=== PATIENT | female | born 1945 | race Caucasian/White ===

== ENCOUNTER → 2018-03-01 | Outpatient (CLI) | payer MEDICARE, OTHER ==
--- NOTE | 2018-03-01 15:55 | CT ---
EXAMINATION TYPE: CT abdomen pelvis wo con DATE OF EXAM: 03/01/2018 HISTORY: Pelvic pain. Personal history of stones CT DLP: 767.5 mGycm. Automated Exposure Control for Dose Reduction was Utilized. TECHNIQUE: CT scan of the abdomen and pelvis is performed without oral or IV contrast. COMPARISON: NONE FINDINGS: Within the limitations of a non-contrast study, the following observations are made. LUNG BASES: Calcification level of the mitral valve is redemonstrated. There is prominent but subcent imeter right pericardial lymph node axial image 6. LIVER/GB: No significant abnormality is appreciated. PANCREAS: Some mild fat replaced atrophy at pancreatic head level is seen. SPLEEN: There is subcentimeter splenule anteriorly axial image 19 is slightly larger 1.0 cm splenule inferior to this axial image 23. ADRENALS: No significant abnormality is seen. KIDNEYS: There is double-J left ureter stent. At lower pole pelvis there are 3 larger renal calculi m easuring up to 11 mm on long axis. There is no right-sided renal calculi or hydronephrosis. There is nonspecific irregular soft tissue n odularity posterior and lateral to the right kidney. Cannot exclude some central fluid. No intraluminal calculi poorly distended bladder. There is mild concentric wall thickening with mild to moderate surrounding fat stranding. Cannot exclude cystitis. Correlate clinically. BOWEL: Normal-appearing appendix is seen from cecum. There is no suspicious small or large bowel dila tation. GENITAL ORGANS: Anteverted uterus is present. There are adjacent pelvic phleboliths. LYMPH NODES: No greater than 1cm abdominal or pelvic lymph nodes are appreciated. OSSEOUS STRUCTURES: Osseous structures are demineralized. There is mild to moderate chronic compressi on with sclerosis at L1 level. There is multilevel spurring in the thoracic spine. There is facet art hropathy lower lumbar levels. OTHER: There is mild calcified plaque of the aorta extending into branch vessels. Slightly more promi nent calcified plaque is seen in origin of right renal artery coronal image 52. There is moderate sized fat-containing left sided ventral wall hernia near level of umbilicus seen be st coronal image 20. There is asymmetric enlargement of right iliopsoas muscle with low dense central area axial image 68. IMPRESSION: 3 fairly large lower pole renal calculi. Successful positioning of left double-J ureter s tent. Nonspecific right retroperitoneal findings surrounding right kidney and involving right iliopso as muscle. Differential includes fluid collection such as abscesses and/or hematomas. Correlate clini crystal. Metastatic disease can have this appearance. The need to further investigate by contrast-enhan celeste imaging should be based on clinical correlation. Possible cystitis. Correlate clinically. A Hutchinson level critical message alert has been initiated for Feng Nolen MD via the [employer] Critical Results System on 03/01/2018 3:53 PM. This message alert has been sent to Catia Azar via the preferences provided by the clinician for the receipt of Radiology Critical Findings. [facility] ID [id number].
== END | disposition home or self-care (01) ==
LOC: RADCTMAIN 15:14
PROVIDERS: ATTEND Urology
DX: N20.0 Calculus of kidney (principal); Z96.0 Presence of urogenital implants; Z88.1 Allergy status to other antibiotic agents; Z87.442 Personal history of urinary calculi
CPT/HCPCS: 74176

== ENCOUNTER → 2018-03-15 | Outpatient (CLI) | payer MEDICARE, OTHER ==
[2018-03-15 14:38] LABS: Potassium 4.7 mmol/L (3.5-5.1)
[2018-03-15 15:04] LABS: Basophils # (A) 0.1 k/uL (0-0.2); Basophils % (A) 1 %; Eosinophils # (A) 0.2 k/uL (0-0.7); Eosinophils % (A) 2 %; HCT 35.3 % (34.0-46.0); HGB 11.4 gm/dL (11.4-16.0); Hypochromasia Slight; Lymphocytes # (A) 2.1 k/uL (1.0-4.8); Lymphocytes % (A) 23 %; MCH 28.1 pg (25.0-35.0); MCHC 32.3 g/dL (31.0-37.0); MCV 87.1 fL (80.0-100.0); Mean Platelet Volume 7.3; Monocytes # (A) 0.4 k/uL (0-1.0); Monocytes % (A) 5 %; Neutrophils # (A) 6.2 k/uL (1.3-7.7); Neutrophils % (A) 69 %; Platelet Count 280 k/uL (150-450); RBC 4.05 m/uL (3.80-5.40); RDW 14.5 % (11.5-15.5)
[2018-03-15 15:16] LABS: Appearance,Urine Turbid (Clear); Bacteria,Urine Moderate /hpf; Bilirubin,Urine Negative (Negative); Blood,Urine Moderate (Negative); Color,Urine Yellow; Glucose,Urine (UA) Negative (Negative); Ketones,Urine Negative (Negative); Leukocyte Esterase,Urine Large (Negative); Mucus,Urine Occasional /hpf; Nitrite,Urine Negative (Negative); PH, Urine 5.5 (5.0-8.0); Protein,Urine 1+ (Negative); RBC,Urine >182 /hpf (0-5); Specific Gravity,Urine 1.017 (1.001-1.035); Urobilinogen,Urine <2.0 mg/dL (<2.0); WBC,Urine >182 /hpf (0-5)
== END | disposition home or self-care (01) ==
LOC: LABWHC1 13:58
PROVIDERS: ATTEND Urology
DX: N20.0 Calculus of kidney (principal)
CPT/HCPCS: 36415; 80051; 81001; 82565; 84520; 85025; 87086; 93005

== ENCOUNTER 2018-03-22 11:17 | Day surgery (SDC) | payer MEDICARE, OTHER ==
[2018-03-19 08:31] VITALS: BMI 30.7
[~2018-03-22 11:17] MED LIST: DEXAMETHASONE SOD PHOSPHATE 10 MG/ML 1 ML VIAL IV ONE; LACTATED RINGERS 1,000 ML IV SCH; LIDOCAINE 1% 20 ML VIAL (10MG/ML) FOR IV START INTRADERMA PRN; MORPHINE SULFATE 2 MG/ML SYRINGE IV PRN; ONDANSETRON 4 MG/2 ML VIAL IVP ONE; Pre Op ABX Message 1 EACH MISC MISCELLANE ONE
[2018-03-22 12:00] VITALS: TEMP 98
[2018-03-22 12:20] LABS: Glucose,Whole Blood 73 mg/dL (75-99)
--- NOTE | 2018-03-22 12:22 | XR ---
EXAMINATION TYPE: XR KUB DATE OF EXAM: 03/22/2018 CLINICAL DATA: 72-year-old female preop for right-sided lithotripsy, [facility] COMPARISON: CT 03/01/2018 FINDINGS: Nonobstructive bowel gas pattern. A left-sided ureteral stent is present. A 5 mm calcification remains in the left renal pelvis along t he course of the stent. Vascular calcifications in the pelvis. IMPRESSION: A single 5 mm calculus remains in the left renal pelvis. The other 2 calculi seen on the patient's CT are not clearly identified. A left ureteral stent is in place.
[2018-03-22] MEDS ORDERED: LIDOCAINE 1% INJ 10MG/ML (20 ML MDV) ONE (12:32)
[2018-03-22] MEDS ORDERED: fentaNYL (PF) 50 MCG/ML 2 ML AMP ONE (12:32)
[2018-03-22] MEDS ORDERED: PROPOFOL 10 MG/ML 20 ML VIAL IV ONE (12:32)
[2018-03-22] MEDS ORDERED: MIDAZOLAM 2 MG/2 ML VIAL ONE (12:32)
[2018-03-22 13:45] LABS: Glucose,Whole Blood 76 mg/dL (75-99)
[2018-03-22] MEDS ORDERED: HYDROcodone/APAP 5-325MG 1 EACH TAB PO ONE (13:47)
--- NOTE | 2018-03-22 13:50 | P.OP ---
Date of Procedure: 03/22/18 Preoperative Diagnosis: Left renal calculus, calcified left ureteral stent Postoperative Diagnosis: Same Procedure(s) Performed: Extracorporeal shockwave lithotripsy left 2000 shocks at energy level IV, cystoscopy with removal double-J catheter left Anesthesia: MAC Surgeon: Feng Nolen Pathology: none sent Condition: stable Disposition: PACU Indications for Procedure: The patient is a 72-year-old female who recently transferred her urologic care from another urologic his office for kidney stones and kidney stone problems. She did not have a lot of information nor did she bring records with her. I ended up performing a KUB identifying a left ureteral stent which had been present for over urine a half according to the patient. There is a stone at the UPJ. She comes for shockwave lithotripsy to the stone and the stent to remove both Description of Procedure: Patient brought to the operating suite table and placed on the operating table supine position. The stone in the UPJ seen in 2 views of fluoroscopy. 15 and shocks at energy level IV administered to fracture the stone. I then due to 150 shocks to tip of the coil and the break of the coil on the ureteral catheter. It appears to move more freely. At the end of the procedure she's placed in a frog position with a sterile prep. Cystoscopy Foroblique lens and 25-Uzbek sheath identifies a very inflamed bladder with an encrusted stent. The stent is easily pull out of the ureter. Bladder is drained the patient's awake and returned recovery room good condition Impression successful shockwave lithotripsy and stent removal.
[2018-03-22] MEDS ORDERED: fentaNYL (PF) 50 MCG/ML 2 ML AMP IVP ONE (14:00)
[2018-03-22 14:10] VITALS: RESP 20
[2018-03-22] MEDS ORDERED: LABETALOL 5 MG/ML VIAL MDV IV ONE (14:50)
[2018-03-22 15:24] VITALS: PULSE 78
[2018-03-22 15:25] VITALS: BP 162/74
== END 2018-03-22 15:43 | disposition home or self-care (01) ==
LOC: ORWHC2ENDO 11:17
PROVIDERS: ATTEND Urology
DX: N20.0 Calculus of kidney (principal); I10 Essential (primary) hypertension; E11.9 Type 2 diabetes mellitus without complications; E78.00 Pure hypercholesterolemia, unspecified; E66.9 Obesity, unspecified; M19.90 Unspecified osteoarthritis, unspecified site; F32.9 Major depressive disorder, single episode, unspecified; R41.3 Other amnesia; F41.9 Anxiety disorder, unspecified; E78.5 Hyperlipidemia, unspecified; Z79.4 Long term (current) use of insulin; Z83.3 Family history of diabetes mellitus; Z79.891 Long term (current) use of opiate analgesic; Z87.442 Personal history of urinary calculi; Z88.1 Allergy status to other antibiotic agents; Z79.899 Other long term (current) drug therapy; Z68.30 Body mass index [BMI] 30.0-30.9, adult
CPT/HCPCS: 74018; 50590; 52310; J2250; J1100; J2405; J2001; J3010; J2704

== ENCOUNTER 2020-04-09 23:20 | Inpatient (IN) | payer MEDICARE, OTHER ==
[2020-04-09] MEDS ORDERED: ACETAMINOPHEN TAB 325 MG TAB PO STA (23:48)
[2020-04-09] MEDS: SODIUM CHLORIDE 0.9% 500 ML 500 ML IV SCH (23:53)
[2020-04-10 00:28] LABS: Basophils % (A) 0 %; Eosinophils # (A) 0.2 k/uL (0-0.7); Eosinophils % (A) 2 %; HCT 34.7 % (34.0-46.0); HGB 11.4 gm/dL (11.4-16.0); Lymphocytes # (A) 1.3 k/uL (1.0-4.8); Lymphocytes % (A) 12 %; MCH 31.1 pg (25.0-35.0); MCHC 32.9 g/dL (31.0-37.0); MCV 94.6 fL (80.0-100.0); Mean Platelet Volume 8.4; Monocytes # (A) 0.4 k/uL (0-1.0); Monocytes % (A) 4 %; Neutrophils # (A) 8.8 k/uL (1.3-7.7); Neutrophils % (A) 81 %; Platelet Count 263 k/uL (150-450); RBC 3.66 m/uL (3.80-5.40); RDW 13.6 % (11.5-15.5); WBC 10.8 k/uL (3.8-10.6)
[2020-04-10 00:31] LABS: Glucose,Whole Blood 502 mg/dL (75-99)
[2020-04-10] MEDS ORDERED: INSULIN REGULAR 100 UNIT/ML VIAL IV STA (00:31)
[2020-04-10 00:40] LABS: Albumin 3.6 g/dL (3.5-5.0); Calcium 8.9 mg/dL (8.4-10.2); Total Bilirubin 0.3 mg/dL (0.2-1.3); Total Protein 7.1 g/dL (6.3-8.2)
[2020-04-10 00:41] LABS: Glucose,Whole Blood 482 mg/dL (75-99)
[2020-04-10 00:47] LABS: INR 0.9 (<1.2); Prothrombin Time 9.5 sec (9.0-12.0)
[2020-04-10] MEDS: SODIUM CHLORIDE 0.9% 500 ML 500 ML IV SCH (00:47)
--- NOTE | 2020-04-10 00:52 | CT ---
EXAMINATION TYPE: CT brain wo con DATE OF EXAM: 04/10/2020 COMPARISON: None HISTORY: Headache CT DLP: mGycm Automated exposure control for dose reduction was used. There is cerebral cortical atrophy. There is no mass effect nor midline shift. There is no sign of in tracranial hemorrhage. There is hypodensity in the right occipital lobe consistent with old infarct. There is enlargement of the sylvian fissures. Calvarium is intact. 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 Cerebral atrophy. No acute intracranial abnormality.
[2020-04-10 00:57] LABS: Partial Thromboplastin Time 18.8 sec (22.0-30.0)
--- NOTE | 2020-04-10 01:15 | ED ---
Altered Mental Status HPI - General Chief Complaint: Altered Mental Status Stated Complaint: Altered mental status Time Seen by Provider: 04/09/20 23:32 Source: patient, EMS Mode of arrival: EMS - History of Present Illness Initial Comments: 74-year-old female patient is brought to the emergency department via ambulance in by her daughter for altered mental status. Upon arrival patient is unsure why she is here. She is reporting suprapubic abdominal discomfort as well as "headache" to the left eye. Patient states that the pain is sharp and intermittent. She just states "I don't know" when asked further details about the headache. Daughter reports that she did have a fall tonight around 10pm, but they are unsure if she hit her head or had any injuries. Patient is somewhat confused and is a poor historian. Daughter reports that she has been treated for a urinary tract infection for the last two weeks. According to documents sent with the patient it appears to be keflex. Patient does take plavix. She denies any chest pain, shortness of breath, or back pain. She states she is having suprapubic discomfort and dysuria. Patient denies any recent rash, fever, chills, cough, nausea, vomiting, diarrhea, constipation, back pain, numbness, tingling, dizziness, weakness, hematuria, dysuria, urinary urgency, urinary frequency, or any other complaints. - Related Data Home Medications Medication Instructions Recorded Confirmed ALPRAZolam [Xanax] 0.25 mg PO DAILY PRN 03/19/18 03/22/18 ARIPiprazole [Abilify] 2 mg PO DAILY 03/19/18 03/22/18 Atenolol 100 mg PO DAILY 03/19/18 03/22/18 Ergocalciferol (Vitamin D2) 50,000 unit PO DAILY 03/19/18 03/22/18 [Vitamin D2] Ferrous Sulfate [Feosol] 325 mg PO DAILY 03/19/18 03/22/18 Furosemide [Lasix] 20 mg PO DAILY 03/19/18 03/22/18 Insulin Aspart [NovoLOG] 0 units SQ ACHS 03/19/18 03/22/18 Insulin Detemir (Levemir) [Levemir] 15 unit SQ BID 03/19/18 03/22/18 Potassium Chloride [Klor-Con 20] 20 meq PO DAILY 03/19/18 03/22/18 Sertraline [Zoloft] 50 mg PO HS 03/19/18 03/22/18 Simvastatin [Zocor] 10 mg PO HS 03/19/18 03/22/18 Tamsulosin HCl [Flomax] 0.4 mg PO DAILY 03/19/18 03/22/18 cloNIDine HCL [Catapres] 0.1 mg PO DAILY 03/19/18 03/22/18 glipiZIDE [Glucotrol] 10 mg PO AC-BRKFST 03/19/18 03/22/18 Previous Rx's Medication Instructions Recorded HYDROcodone/APAP 5-325MG [[place] 1 tab PO Q4HR PRN #14 tab 03/22/18 5-325] Allergies Allergy/AdvReac Type Severity Reaction Status Date / Time No Known Allergies Allergy Verified 03/19/18 08:11 Review of Systems ROS Statement: Those systems with pertinent positive or pertinent negative responses have been documented in the HPI. ROS Other: All systems not noted in ROS Statement are negative. Past Medical History Past Medical History: CVA/TIA, Diabetes Mellitus, Hyperlipidemia, Hypertension, Osteoarthritis (OA) Additional Past Medical History / Comment(s): UTI, chronic kidney dx stage 3, Iron deficiency anemia,delirium due to known physiological condition History of Any Multi-Drug Resistant Organisms: None Reported Past Psychological History: Depression Smoking Status: Light tobacco smoker Past Alcohol Use History: Daily Past Drug Use History: None Reported General Exam General appearance: alert, in no apparent distress, other (Physical well- developed, well-nourished elderly female patient in no acute distress. Vital signs upon presentation are temperature 99.3F, pulse 82, respirations 15, blood pressure 134/79, pulse ox 94% on room air.) Eye exam: Present: normal appearance, PERRL, EOMI, other (Pressure to the left eye is 11-12 mmHg.). Absent: scleral icterus, conjunctival injection, bridgett orbital swelling ENT exam: Present: normal exam, normal oropharynx, mucous membranes moist Neck exam: Present: normal inspection, full ROM, other (Nontender, no step-off, no deformity to firm midline palpation of the posterior cervical spine. Full r elisa of motion without pain or limitation.). Absent: tenderness, meningismus, lymphadenopathy Respiratory exam: Present: normal lung sounds bilaterally. Absent: respiratory distress, wheezes, rales, rhonchi, stridor Cardiovascular Exam: Present: regular rate, normal rhythm, normal heart sounds. Absent: systolic murmur, diastolic murmur, rubs, gallop, clicks GI/Abdominal exam: Present: soft, tenderness (Suprapubic tenderness), normal bowel sounds. Absent: distended, guarding, rebound, rigid Neurological exam: Present: alert, CN II-XII intact. Absent: oriented X3 (Oriented 1) Psychiatric exam: Present: normal affect, normal mood Skin exam: Present: warm, dry, intact, normal color. Absent: rash Course Vital Signs 04/09/20 04/10/20 04/10/20 23:41 00:44 02:08 Temperature 99.3 F Pulse Rate 82 80 87 Respiratory 15 15 19 Rate Blood Pressure 134/79 155/90 123/68 O2 Sat by Pulse 94 L 93 L 97 Oximetry Medical Decision Making - Medical Decision Making 74-year-old female patient presented to the emergency department today for evaluation of altered mental status been going on throughout the day today. Patient has been treated for UTI with Keflex for the last 2 weeks. Patient also experienced a fall around 10 PM this evening, family is unsure if she hit her head. Patient was complaining of a headache upon arrival mostly to the area of the left eye. I did check pressures in the eye when they were 11-12. Patient did report loss of vision at one point but then a few minutes later stated that she was able to see fine. I did do funduscopic examination with the ophthalmoscope which showed no evidence for retinal detachment. Labs reviewed and did reveal elevated white blood cell count at 10.8 with a neutrophil count of 8.8. Sodium is 128. BUN 43, creatinine 1.82. Blood sugar upon arrival was 497. Urinalysis shows evidence for infection. We will start levaquin for UTI. I did add CRP and ESR to evaluate for possible temporal arteritis as patient reports the left eye pain, when asked further questions to assess for temporal arteritis she just stated, "I don't know". CT brain is negative. Chest xray is clear. Lactic acid is negative. She will be admitted to the hospital for further evaluation and monitoring. - Lab Data Result diagrams: 04/10/20 00:12 04/10/20 00:12 Lab Results 0604/10/20 04/10/20 Range/Units 00:12 00:12 00:12 WBC 10.8 H (3.8-10.6) k/uL RBC 3.66 L (3.80-5.40) m/uL Hgb 11.4 (11.4-16.0) gm/dL Hct 34.7 (34.0-46.0) % MCV 94.6 (80.0-100.0) fL MCH 31.1 (25.0-35.0) pg MCHC 32.9 (31.0-37.0) g/dL RDW 13.6 (11.5-15.5) % Plt Count 263 (150-450) k/uL Neutrophils % 81 % Lymphocytes % 12 % Monocytes % 4 % Eosinophils % 2 % Basophils % 0 % Neutrophils # 8.8 H (1.3-7.7) k/uL Lymphocytes # 1.3 (1.0-4.8) k/uL Monocytes # 0.4 (0-1.0) k/uL Eosinophils # 0.2 (0-0.7) k/uL Basophils # 0.0 (0-0.2) k/uL PT 9.5 (9.0-12.0) sec INR 0.9 (<1.2) APTT 18.8 L (22.0-30.0) sec Sodium 128 L (137-145) mmol/L Potassium 5.0 (3.5-5.1) mmol/L Chloride 99 (98-107) mmol/L Carbon Dioxide 18 L (22-30) mmol/L Anion Gap 11 mmol/L BUN 43 H (7-17) mg/dL Creatinine 1.82 H (0.52-1.04) mg/dL Est GFR (CKD-EPI)AfAm 31 (>60 ml/min/1.73 sqM) Est GFR (CKD-EPI)NonAf 27 (>60 ml/min/1.73 sqM) Glucose 497 H (74-99) mg/dL POC Glucose (mg/dL) (75-99) mg/dL POC Glu Director Women ID Plasma Lactic Acid Jonathan (0.7-2.0) mmol/L Calcium 8.9 (8.4-10.2) mg/dL Total Bilirubin 0.3 (0.2-1.3) mg/dL AST 22 (14-36) U/L ALT 14 (4-34) U/L Alkaline Phosphatase 128 H (38-126) U/L C-Reactive Protein (<10.0) mg/L Total Protein 7.1 (6.3-8.2) g/dL Albumin 3.6 (3.5-5.0) g/dL Urine Color Urine Appearance (Clear) Urine pH (5.0-8.0) Ur Specific Keaton (1.001-1.035) Urine Protein (Negative) Urine Glucose (UA) (Negative) Urine Ketones (Negative) Urine Blood (Negative) Urine Nitrite (Negative) Urine Bilirubin (Negative) Urine Urobilinogen (<2.0) mg/dL Ur Leukocyte Esterase (Negative) Urine RBC (0-5) /hpf Urine WBC (0-5) /hpf Urine WBC Clumps (None) /hpf Ur Squamous Epith Cells (0-4) /hpf Urine Bacteria (None) /hpf Urine Mucus (None) /hpf Acetone, Qual (Negative) 04/10/20 04/10/20 04/10/20 Range/Units 00:12 00:12 00:12 WBC (3.8-10.6) k/uL RBC (3.80-5.40) m/uL Hgb (11.4-16.0) gm/dL Hct (34.0-46.0) % MCV (80.0-100.0) fL MCH (25.0-35.0) pg MCHC (31.0-37.0) g/dL RDW (11.5-15.5) % Plt Count (150-450) k/uL Neutrophils % % Lymphocytes % % Monocytes % % Eosinophils % % Basophils % % Neutrophils # (1.3-7.7) k/uL Lymphocytes # (1.0-4.8) k/uL Monocytes # (0-1.0) k/uL Eosinophils # (0-0.7) k/uL Basophils # (0-0.2) k/uL PT (9.0-12.0) sec INR (<1.2) APTT (22.0-30.0) sec Sodium (137-145) mmol/L Potassium (3.5-5.1) mmol/L Chloride (98-107) mmol/L Carbon Dioxide (22-30) mmol/L Anion Gap mmol/L BUN (7-17) mg/dL Creatinine (0.52-1.04) mg/dL Est GFR (CKD-EPI)AfAm (>60 ml/min/1.73 sqM) Est GFR (CKD-EPI)NonAf (>60 ml/min/1.73 sqM) Glucose (74-99) mg/dL POC Glucose (mg/dL) (75-99) mg/dL POC Glu Director Women ID Plasma Lactic Acid Jonathan 1.2 (0.7-2.0) mmol/L Calcium (8.4-10.2) mg/dL Total Bilirubin (0.2-1.3) mg/dL AST (14-36) U/L ALT (4-34) U/L Alkaline Phosphatase (38-126) U/L C-Reactive Protein 32.2 H (<10.0) mg/L Total Protein (6.3-8.2) g/dL Albumin (3.5-5.0) g/dL Urine Color Urine Appearance (Clear) Urine pH (5.0-8.0) Ur Specific Keaton (1.001-1.035) Urine Protein (Negative) Urine Glucose (UA) (Negative) Urine Ketones (Negative) Urine Blood (Negative) Urine Nitrite (Negative) Urine Bilirubin (Negative) Urine Urobilinogen (<2.0) mg/dL Ur Leukocyte Esterase (Negative) Urine RBC (0-5) /hpf Urine WBC (0-5) /hpf Urine WBC Clumps (None) /hpf Ur Squamous Epith Cells (0-4) /hpf Urine Bacteria (None) /hpf Urine Mucus (None) /hpf Acetone, Qual Negative (Negative) 04/10/20 04/10/20 04/10/20 Range/Units 00:29 00:39 01:15 WBC (3.8-10.6) k/uL RBC (3.80-5.40) m/uL Hgb (11.4-16.0) gm/dL Hct (34.0-46.0) % MCV (80.0-100.0) fL MCH (25.0-35.0) pg MCHC (31.0-37.0) g/dL RDW (11.5-15.5) % Plt Count (150-450) k/uL Neutrophils % % Lymphocytes % % Monocytes % % Eosinophils % % Basophils % % Neutrophils # (1.3-7.7) k/uL Lymphocytes # (1.0-4.8) k/uL Monocytes # (0-1.0) k/uL Eosinophils # (0-0.7) k/uL Basophils # (0-0.2) k/uL PT (9.0-12.0) sec INR (<1.2) APTT (22.0-30.0) sec Sodium (137-145) mmol/L Potassium (3.5-5.1) mmol/L Chloride (98-107) mmol/L Carbon Dioxide (22-30) mmol/L Anion Gap mmol/L BUN (7-17) mg/dL Creatinine (0.52-1.04) mg/dL Est GFR (CKD-EPI)AfAm (>60 ml/min/1.73 sqM) Est GFR (CKD-EPI)NonAf (>60 ml/min/1.73 sqM) Glucose (74-99) mg/dL POC Glucose (mg/dL) 502 H 482 H (75-99) mg/dL POC Glu Director Women ID Sybil Herrera JeanieYadira Plasma Lactic Acid Jonathan (0.7-2.0) mmol/L Calcium (8.4-10.2) mg/dL Total Bilirubin (0.2-1.3) mg/dL AST (14-36) U/L ALT (4-34) U/L Alkaline Phosphatase (38-126) U/L C-Reactive Protein (<10.0) mg/L Total Protein (6.3-8.2) g/dL Albumin (3.5-5.0) g/dL Urine Color Light Yellow Urine Appearance Turbid H (Clear) Urine pH 5.5 (5.0-8.0) Ur Specific Keaton 1.013 (1.001-1.035) Urine Protein 1+ H (Negative) Urine Glucose (UA) 4+ H (Negative) Urine Ketones Negative (Negative) Urine Blood Moderate H (Negative) Urine Nitrite Negative (Negative) Urine Bilirubin Negative (Negative) Urine Urobilinogen <2.0 (<2.0) mg/dL Ur Leukocyte Esterase Large H (Negative) Urine RBC 31 H (0-5) /hpf Urine WBC >182 H (0-5) /hpf Urine WBC Clumps Many H (None) /hpf Ur Squamous Epith Cells 5 H (0-4) /hpf Urine Bacteria Occasional H (None) /hpf Urine Mucus Rare H (None) /hpf Acetone, Qual (Negative) - EKG Data -: EKG Interpreted by Me EKG Comments: EKG obtained at 00 57 shows normal sinus rhythm with a ventricular rate of 81, IA interval 160, QRS duration 88, QT 434, QTC 504. No evidence of ST elevation or depression. - Radiology Data Radiology results: report reviewed, image reviewed Two-view x-ray of the chest is obtained. Report was reviewed in its entirety. Impression by Dr. Moffett shows no active pulmonary disease. CT brain without contrast was obtained. Report was reviewed in its entirety. Impression by Dr. Moffett shows an old right occipital lobe cortical infarct. Cerebral atrophy. No acute intracranial abnormality. Disposition Clinical Impression: UTI (urinary tract infection), Altered mental status, Hyperglycemia Disposition: [facility] Condition: Serious Referrals: None,Stated [Primary Care Provider] - 1-2 days Decision to Admit Reason: Admit from EC Decision Date: 04/10/20 Decision Time: 02:42
[2020-04-10] MEDS ORDERED: SODIUM CHLORIDE 0.9% 1,000 ML IV ONE (01:18)
[2020-04-10 01:42] LABS: Appearance,Urine Turbid (Clear); Bacteria,Urine Occasional /hpf; Bilirubin,Urine Negative (Negative); Blood,Urine Moderate (Negative); Color,Urine Light Yellow; Glucose,Urine (UA) 4+ (Negative); Ketones,Urine Negative (Negative); Leukocyte Esterase,Urine Large (Negative); Mucus,Urine Rare /hpf; Nitrite,Urine Negative (Negative); PH, Urine 5.5 (5.0-8.0); Protein,Urine 1+ (Negative); RBC,Urine 31 /hpf (0-5); Specific Gravity,Urine 1.013 (1.001-1.035); Squamous Epithelial Cell,Urine 5 /hpf (0-4); Urobilinogen,Urine <2.0 mg/dL (<2.0); WBC,Urine >182 /hpf (0-5)
--- NOTE | 2020-04-10 02:00 | XR ---
EXAMINATION TYPE: XR chest 2V DATE OF EXAM: 04/10/2020 COMPARISON: NONE HISTORY: Hypoxemia TECHNIQUE: 2 views FINDINGS: There is no heart failure nor confluent pneumonic infiltrate. Thoracic aorta is atheromatou s. There are chest leads. Costophrenic angles are clear. IMPRESSION: No active pulmonary disease.
[2020-04-10] MEDS ORDERED: LEVOFLOXACIN 750MG-D5W PMX 750 MG in DEXTROSE/WATER 1 150ML.BAG IVPB STA (02:29)
[2020-04-10 02:42] LABS: Glucose,Whole Blood 397 mg/dL (75-99)
[2020-04-10] MEDS ORDERED: NALOXONE 0.4 MG/ML 1 ML VIAL IV PRN (02:44)
[2020-04-10] MEDS ORDERED: INSULIN ASPART (NovoLOG) 100 UNIT/ML VIAL SQ STA (02:48)
[2020-04-10] MEDS: SODIUM CHLORIDE 0.9% 1,000 ML IV SCH ×2 (03:33→16:34)
--- NOTE | 2020-04-10 05:26 | P.HPIM ---
History of Present Illness H&P Date: 04/10/20 The patient is a 74-year-old female with a PMH of CVA, type II DM, hyperlipidemia, hypertension, and OA who was brought into the ED by family due to altered mentation. The patient is a very poor historian and thereby history obtained from ED provider and documentation. The patient notes that she is having diffuse abdominal pain though is denying any additional complaints. As per the ED documentation, the daughter had reported that the patient had a fall earlier on the day of presentation and were unsure if she had suffered head trauma. The daughter also reported that the patient was recently treated for UTI with the documentation showing that she was receiving Keflex. As per the ED documentation, the patient also reported a diffuse headache along with some left eye complaints. During the interview however, the patient denied any visual complaints though was unable to see on examination. The patient further denied dysuria, fever, chills, chest pain, shortness of nausea, vomiting, or diarrhea. Attempted to contact daughter (Madeline Pike [phone]) with no answer received. The patient underwent an extensive outpatient emergency room with a CT head that revealed old right upper lobe cortical infarct with no other acute abnormalities. Chest x-ray revealed no abnormalities with EKG showing sinus rhythm at 81 bpm with LVH. Laboratory evaluation revealed a UA consistent with UTI, WBC count of 10.8, hemoglobin 11.4, platelet is 263, sodium 128, potassium 5.0, BUN 43, creatinine 1.82, and glucose 497 with acetone negative. Review of Systems Pertinent positives and negatives as discussed in HPI, a complete review of systems was performed and all other systems are negative. Past Medical History Past Medical History: CVA/TIA, Diabetes Mellitus, Hyperlipidemia, Hypertension, Osteoarthritis (OA) Additional Past Medical History / Comment(s): UTI, chronic kidney dx stage 3, Iron deficiency anemia,delirium due to known physiological condition History of Any Multi-Drug Resistant Organisms: None Reported Past Psychological History: Depression Smoking Status: Light tobacco smoker Past Alcohol Use History: Daily Past Drug Use History: None Reported Medications and Allergies Home Medications Medication Instructions Recorded Confirmed Type ALPRAZolam [Xanax] 0.25 mg PO DAILY PRN 03/19/18 03/22/18 History ARIPiprazole [Abilify] 2 mg PO DAILY 03/19/18 03/22/18 History Atenolol 100 mg PO DAILY 03/19/18 03/22/18 History Ergocalciferol (Vitamin D2) 50,000 unit PO DAILY 03/19/18 03/22/18 History [Vitamin D2] Ferrous Sulfate [Feosol] 325 mg PO DAILY 03/19/18 03/22/18 History Furosemide [Lasix] 20 mg PO DAILY 03/19/18 03/22/18 History Insulin Aspart [NovoLOG] 0 units SQ ACHS 03/19/18 03/22/18 History Insulin Detemir (Levemir) [Levemir] 15 unit SQ BID 03/19/18 03/22/18 History Potassium Chloride [Klor-Con 20] 20 meq PO DAILY 03/19/18 03/22/18 History Sertraline [Zoloft] 50 mg PO HS 03/19/18 03/22/18 History Simvastatin [Zocor] 10 mg PO HS 03/19/18 03/22/18 History Tamsulosin HCl [Flomax] 0.4 mg PO DAILY 03/19/18 03/22/18 History cloNIDine HCL [Catapres] 0.1 mg PO DAILY 03/19/18 03/22/18 History glipiZIDE [Glucotrol] 10 mg PO AC-BRKFST 03/19/18 03/22/18 History HYDROcodone/APAP 5-325MG [[place] 1 tab PO Q4HR PRN #14 tab 03/22/18 Rx 5-325] Allergies Allergy/AdvReac Type Severity Reaction Status Date / Time No Known Allergies Allergy Verified 03/19/18 08:11 Physical Exam Vitals: Vital Signs Temp Pulse Resp BP Pulse Ox 04/10/20 02:08 87 19 123/68 97 04/10/20 00:44 80 15 155/90 93 L 04/09/20 23:41 99.3 F 82 15 134/79 94 L Intake and Output 04/09/20 04/09/20 04/10/20 14:59 22:59 06:59 Other: Weight 85.956 kg General: non toxic, no distress, appears at stated age, obese Derm: no unusual rashes/lesions no unusual ecchymoses, warm, dry Head: atraumatic, normocephalic, symmetric Eyes: EOMI, no lid lag, anicteric sclera, pupils equal round reactive to light ENT: Nose and ears atraumatic, no thrush, no pharyngeal erythema Neck: No thyromegaly, no cervical lymphadenopathy, trachea midline, supple Mouth: no lip lesion, mucus membranes moist Cardiovascular: S1S2 reg, no murmur, positive posterior tibial pulse bilateral, no edema, capillary refill less than 2 seconds Lungs: CTA bilateral, no rhonchi, no rales , no accessory muscle use Abdominal: soft, mild to moderate diffuse abdominal tenderness, no guarding, no appreciable organomegaly, normal bowel sounds Ext: no gross muscle atrophy, muscle strength 5 out of 5 in all 4 extremities grossly, no contractures, Neuro: Patient appears to not be able to track visual objects or respond to visual cues appearing functionally blind, light touch intact all 4 extremities Psych: Awake, alert, oriented only to self and partially to place though unable to give meaningful history Results CBC & Chem 7: 04/10/20 00:12 04/10/20 00:12 Labs: Abnormal Lab Results - Last 24 Hours (Table) 04/10/20 04/10/20 04/10/20 Range/Units 00:12 00:12 00:12 WBC 10.8 H (3.8-10.6) k/uL RBC 3.66 L (3.80-5.40) m/uL Neutrophils # 8.8 H (1.3-7.7) k/uL ESR (0-20) mm/hr APTT 18.8 L (22.0-30.0) sec Sodium 128 L (137-145) mmol/L Carbon Dioxide 18 L (22-30) mmol/L BUN 43 H (7-17) mg/dL Creatinine 1.82 H (0.52-1.04) mg/dL Glucose 497 H (74-99) mg/dL POC Glucose (mg/dL) (75-99) mg/dL Alkaline Phosphatase 128 H (38-126) U/L C-Reactive Protein (<10.0) mg/L Urine Appearance (Clear) Urine Protein (Negative) Urine Glucose (UA) (Negative) Urine Blood (Negative) Ur Leukocyte Esterase (Negative) Urine RBC (0-5) /hpf Urine WBC (0-5) /hpf Urine WBC Clumps (None) /hpf Ur Squamous Epith Cells (0-4) /hpf Urine Bacteria (None) /hpf Urine Mucus (None) /hpf 04/10/20 04/10/20 04/10/20 Range/Units 00:12 00:12 00:29 WBC (3.8-10.6) k/uL RBC (3.80-5.40) m/uL Neutrophils # (1.3-7.7) k/uL ESR 106 H (0-20) mm/hr APTT (22.0-30.0) sec Sodium (137-145) mmol/L Carbon Dioxide (22-30) mmol/L BUN (7-17) mg/dL Creatinine (0.52-1.04) mg/dL Glucose (74-99) mg/dL POC Glucose (mg/dL) 502 H (75-99) mg/dL Alkaline Phosphatase (38-126) U/L C-Reactive Protein 32.2 H (<10.0) mg/L Urine Appearance (Clear) Urine Protein (Negative) Urine Glucose (UA) (Negative) Urine Blood (Negative) Ur Leukocyte Esterase (Negative) Urine RBC (0-5) /hpf Urine WBC (0-5) /hpf Urine WBC Clumps (None) /hpf Ur Squamous Epith Cells (0-4) /hpf Urine Bacteria (None) /hpf Urine Mucus (None) /hpf 04/10/20 04/10/20 04/10/20 Range/Units 00:39 01:15 02:40 WBC (3.8-10.6) k/uL RBC (3.80-5.40) m/uL Neutrophils # (1.3-7.7) k/uL ESR (0-20) mm/hr APTT (22.0-30.0) sec Sodium (137-145) mmol/L Carbon Dioxide (22-30) mmol/L BUN (7-17) mg/dL Creatinine (0.52-1.04) mg/dL Glucose (74-99) mg/dL POC Glucose (mg/dL) 482 H 397 H (75-99) mg/dL Alkaline Phosphatase (38-126) U/L C-Reactive Protein (<10.0) mg/L Urine Appearance Turbid H (Clear) Urine Protein 1+ H (Negative) Urine Glucose (UA) 4+ H (Negative) Urine Blood Moderate H (Negative) Ur Leukocyte Esterase Large H (Negative) Urine RBC 31 H (0-5) /hpf Urine WBC >182 H (0-5) /hpf Urine WBC Clumps Many H (None) /hpf Ur Squamous Epith Cells 5 H (0-4) /hpf Urine Bacteria Occasional H (None) /hpf Urine Mucus Rare H (None) /hpf Assessment and Plan Plan: Toxic metabolic encephalopathy in setting of UTI -Continue with levofloxacin since patient recently received a course of Keflex -Continue with IV fluids 80 mL an hour -Follow up urine and blood cultures Impaired vision -Neurochecks -Neurology consult ALEJANDRINA on chronic kidney disease, likely secondary to dehydration -Continue with IV fluids and monitor BMP Hyponatremia -C/w IVFs and monitor BMP Type 2 diabetes mellitus with hyperglycemia -Continue with insulin sliding scale with Levemir qhs -Blood glucose monitoring DVT prophylaxis -IPCDs The patient is admitted with an anticipated more than 2 midnight stay for evaluation of AMS CODE STATUS: Full Code Discussed with: Patient Anticipated discharge date: 2-[address]: Home A total of 40 minutes was spent on the care of this complex patient more than 50% of the time was spent in counseling and care coordination.
[2020-04-10 07:12] LABS: Glucose,Whole Blood 425 mg/dL (75-99)
[2020-04-10] MEDS: INSULIN ASPART (NovoLOG) 100 UNIT/ML VIAL SQ SCH ×4 (08:29→22:19)
[2020-04-10 11:58] LABS: Glucose,Whole Blood 355 mg/dL (75-99)
[2020-04-10 16:50] LABS: Glucose,Whole Blood 187 mg/dL (75-99)
--- NOTE | 2020-04-10 19:32 | CONS ---
CONSULTATION DATE OF DICTATION: 04/10/2020 REASON FOR CONSULTATION: Coffee-ground emesis. HISTORY OF PRESENT ILLNESS: The patient is a 74-year-old pleasant white female who came into the emergency room by her daughter because of altered mental status and an episode of coffee-ground emesis at home. Apparently she was complaining of some abdominal pain, mostly in the lower abdominal area, and had an episode of coffee-ground emesis. She came into the emergency room. She has been admitted to the hospital. Since being in the ER for the last 8 hours she did not have any episodes of nausea, vomiting or coffee-ground emesis. Apparently she was diagnosed with a urinary tract infection about 2 weeks ago and has been on Keflex since then. She reports no fever, chills, night sweats. PAST MEDICAL HISTORY: Her past medical history is significant for recurrent UTI, history of hypertension, diabetes mellitus, hyperlipidemia, degenerative joint disease, history of CVA in the past. MEDICATIONS: Xanax, Abilify, atenolol, vitamin D2, Feosol, Lasix, NovoLog, Levemir, Zocor, Zoloft, potassium chloride, Flomax, Catapres, Glucotrol and [place]. ALLERGIES: NONE. SOCIAL HISTORY: No smoking. No alcohol use. FAMILY HISTORY: Family history could not be obtained. REVIEW OF SYSTEMS: Patient is a somewhat poor historian and most of the review of systems could not be obtained; however: CARDIOPULMONARY: She denies any chest pain or shortness of breath. GI: As mentioned above. CONSTITUTIONAL: She does not remember if she lost any weight. PAST SURGICAL HISTORY: Not reported. PHYSICAL EXAMINATION: She appears comfortable. No apparent distress. Vital signs are stable. Blood pressure is 130/76, pulse rate 94, temperature 98.4. HEENT examination unremarkable. Conjunctivae pink. Sclerae anicteric. Oral cavity no lesions. NECK: No JVD or lymph node enlargement. CHEST: Clear to auscultation. HEART: Regular rate and rhythm. ABDOMEN: Soft. There was mild tenderness in the suprapubic area. Rest of the abdomen was benign. Bowel sounds are positive. EXTREMITIES: No pedal edema. SKIN: No rashes. NEUROLOGIC: Alert and oriented x3. No focal deficits. LABS: Labs from today show WBC 10.8, hemoglobin 11.4, platelets normal. Basic metabolic panel is within normal limits. PT 9.5, INR 0.9. BUN and creatinine are 43 and 1.82, respectively. AST and ALT normal. Alkaline phosphatase is 128. occult blood was positive. IMPRESSION: 1. This is a lady who presented to the hospital with altered mental status and had an episode of nausea and vomiting with coffee-ground emesis at home. No further episodes of bleeding since being in the ER. Initial hemoglobin was 11.4 g/dL. 2. Recurrent urinary tract infection, presently on antibiotics. 3. Altered mental status, probably related to urosepsis, which has improved. 4. History of hypertension, diabetes mellitus and hyperlipidemia. RECOMMENDATIONS: 1. Start on Protonix 40 mg daily. 2. Monitor CBC on a daily basis. 3. If she has further episodes of coffee-ground emesis, will consider endoscopic evaluation, but for now we will continue to monitor her closely with symptomatic and supportive care. Thank you for this consultation. BRANDEN / ROSIE: [phone] /
[2020-04-10 21:38] LABS: Glucose,Whole Blood 271 mg/dL (75-99)
[2020-04-10] MEDS: METOPROLOL TARTRATE 50 MG TAB PO SCH (22:19)
[2020-04-10] MEDS: ACETAMINOPHEN TAB 325 MG TAB PO PRN (22:19)
[2020-04-10] MEDS: ATORVASTATIN 10 MG TAB PO SCH (22:19)
[2020-04-10] MEDS: PANTOPRAZOLE 40 MG/10 ML VIAL IVP SCH (22:20)
[2020-04-10] MEDS: INSULIN DETEMIR (LEVEMIR) 100 UNIT/ML SYR SQ SCH (22:20)
[2020-04-11] MEDS ORDERED: GABAPENTIN 100 MG CAP PO STA (00:23)
[2020-04-11] MEDS: SODIUM CHLORIDE 0.9% 1,000 ML IV SCH ×2 (04:40→17:46)
[2020-04-11 07:05] LABS: Glucose,Whole Blood 220 mg/dL (75-99)
[2020-04-11] MEDS: PANTOPRAZOLE 40 MG/10 ML VIAL IVP SCH ×2 (07:27→21:14)
[2020-04-11] MEDS: ACETAMINOPHEN TAB 325 MG TAB PO PRN (07:28)
[2020-04-11] MEDS: METOPROLOL TARTRATE 50 MG TAB PO SCH ×2 (07:28→21:13)
[2020-04-11] MEDS: FERROUS SULFATE 325 MG TAB PO SCH (07:29)
[2020-04-11] MEDS: TAMSULOSIN 0.4 MG CAP.ER.24H PO SCH (07:29)
[2020-04-11] MEDS: amLODIPine 5 MG TAB PO SCH (07:30)
[2020-04-11] MEDS: SERTRALINE 50 MG TAB PO SCH (07:30)
[2020-04-11] MEDS: INSULIN ASPART (NovoLOG) 100 UNIT/ML VIAL SQ SCH ×4 (07:31→21:25)
[2020-04-11] MEDS ORDERED: LEVOFLOXACIN 750MG-D5W PMX 750 MG in DEXTROSE/WATER 1 150ML.BAG IVPB SCH (09:00)
[2020-04-11] MEDS ORDERED: FUROSEMIDE 20 MG TAB PO SCH (09:00)
[2020-04-11 09:10] LABS: Albumin 3.1 g/dL (3.5-5.0); Calcium 8.5 mg/dL (8.4-10.2); Total Bilirubin 0.4 mg/dL (0.2-1.3); Total Protein 6.3 g/dL (6.3-8.2)
[2020-04-11 09:22] LABS: Basophils # (A) 0.1 k/uL (0-0.2); Basophils % (A) 1 %; Eosinophils # (A) 0.1 k/uL (0-0.7); Eosinophils % (A) 1 %; HGB 10.5 gm/dL (11.4-16.0); Hypochromasia Slight; Lymphocytes # (A) 1.9 k/uL (1.0-4.8); Lymphocytes % (A) 20 %; MCH 31.8 pg (25.0-35.0); MCHC 32.9 g/dL (31.0-37.0); MCV 96.8 fL (80.0-100.0); Monocytes # (A) 0.7 k/uL (0-1.0); Monocytes % (A) 8 %; Neutrophils # (A) 6.8 k/uL (1.3-7.7); Neutrophils % (A) 69 %; Platelet Count 235 k/uL (150-450); RBC 3.31 m/uL (3.80-5.40); RDW 13.5 % (11.5-15.5); WBC 9.8 k/uL (3.8-10.6)
[2020-04-11] MEDS: CLOPIDOGREL 75 MG TAB PO SCH (10:08)
--- NOTE | 2020-04-11 10:45 | US ---
EXAMINATION TYPE: US carotid duplex BILAT DATE OF EXAM: 04/11/2020 COMPARISON: NONE CLINICAL HISTORY: stroke. Stroke exam limited due to patient moving. EXAM MEASUREMENTS: RIGHT: Peak Systolic Velocity (PSV) cm/sec ----- Right CCA: 69.5 ----- Right ICA: 83.4 ----- Right ECA: 97.3 ICA/CCA ratio: 1.2 RIGHT: End Diastole cm/sec ----- Right CCA: 18.4 ----- Right ICA: 23.0 ----- Right ECA: 18.4 LEFT: Peak Systolic Velocity (PSV) cm/sec ----- Left CCA: 95.0 ----- Left ICA: 78.8 ----- Left ECA: 120.6 ICA/CCA ratio: 0.8 LEFT: End Diastole cm/sec ----- Left CCA: 23.0 ----- Left ICA: 16.0 ----- Left ECA: 0 VERTEBRALS (direction of flow): Right Vertebral: Antegrade Left Vertebral: Antegrade Rhythm: Normal There are some areas of mild intimal thickening No significant stenosis seen IMPRESSION: No significant flow-limiting stenosis. Criteria for Assigning % of Stenosis / Diameter reduction (Estimation based on the indirect measurements of the internal carotid artery velocities (ICA PSV). 1. Normal (no stenosis)=ICA PSV < 125 cm/s: ratio < 2.0: ICA EDV<40 cm/s. 2. Less than 50% stenosis=ICA PSV < 125 cm/s: ratio < 2.0: ICA EDV<40 cm/s. 3. 50 to 69% stenosis=ICA PSV of 125 to 230 cm/s: ration 2.0 ? 4.0: ICA EDV 40-100 cm/s. 4. Greater than 70% stenosis to near occlusion= ICA PSV > 230 cm/s: ratio > 4.0: ICA EDV > 100 cm/s. 5. Near occlusion= ICA PSV velocities may be low or undetectable: variable ratio and ICA EDV. 6. Total occlusion=unable to detect flow.
[2020-04-11] MEDS ORDERED: LORazepam 2 MG/ML INJ IV STA (11:00)
--- NOTE | 2020-04-11 11:13 | P.PN ---
Subjective Progress Note Date: 04/11/20 Principal diagnosis: Change in mental status RN noted today that patient was looking on the right side and was unable to look to the left, she was barely able to lift both forearms above the bed level. She is still significantly confused and disoriented. Objective - Vital Signs Vital signs: Vital Signs Temp 97.5 F L 04/11/20 10:00 Pulse 98 04/11/20 07:00 Resp 17 04/11/20 07:00 BP 160/82 04/11/20 07:00 Pulse Ox 97 04/11/20 07:00 Intake & Output 04/10/20 04/11/20 04/11/20 18:59 06:59 18:59 Intake Total 640 400 Balance 640 400 Weight 85.956 kg Intake: Intake, IV Titration 640 Amount Sodium Chloride 0.9% 1, 640 000 ml @ 80 mls/hr IV . [id number] [facility] Rx#:[id number] Oral 400 Other: Voiding Method Bedside Commode Bedside Commode Diaper Diaper Incontinent Incontinent # Voids 4 1 - Labs CBC & Chem 7: 04/11/20 07:11 04/11/20 07:11 Labs: Abnormal Lab Results - Last 24 Hours (Table) 04/10/20 04/10/20 04/10/20 Range/Units 11:54 16:49 21:34 RBC (3.80-5.40) m/uL Hgb (11.4-16.0) gm/dL Hct (34.0-46.0) % Sodium (137-145) mmol/L BUN (7-17) mg/dL Creatinine (0.52-1.04) mg/dL Glucose (74-99) mg/dL POC Glucose (mg/dL) 355 H 187 H 271 H (75-99) mg/dL Albumin (3.5-5.0) g/dL 04/11/20 04/11/20 04/11/20 Range/Units 07:01 07:11 07:11 RBC 3.31 L (3.80-5.40) m/uL Hgb 10.5 L (11.4-16.0) gm/dL Hct 32.0 L (34.0-46.0) % Sodium 135 L (137-145) mmol/L BUN 28 H (7-17) mg/dL Creatinine 1.63 H (0.52-1.04) mg/dL Glucose 194 H (74-99) mg/dL POC Glucose (mg/dL) 220 H (75-99) mg/dL Albumin 3.1 L (3.5-5.0) g/dL Microbiology - Last 24 Hours (Table) 04/10/20 00:12 Blood Culture - Preliminary Blood No Growth after 24 hours 04/10/20 01:15 Urine Culture - Preliminary Urine,Voided Assessment and Plan Plan: Toxic metabolic encephalopathy in setting of ALEJANDRINA & UTI -Continue with levofloxacin since patient recently received a course of Keflex -Continue with IV fluids 80 mL an hour -Urine and blood cultures negative Impaired vision -R/O CVA -Plavix started by neuro -Continue neurochecks -Neurology recommending MRI brain to r/o stroke, planned at around 1PM -Tele -PT and OT ALEJANDRINA on chronic kidney disease, likely secondary to dehydration -Continue with IV fluids and monitor BMP Hyponatremia -C/w IVFs and monitor BMP Type 2 diabetes mellitus with hyperglycemia -Continue with insulin sliding scale with Levemir qhs -Blood glucose monitoring DVT prophylaxis -IPCDs CODE STATUS: Full Code Discussed with: Patient Anticipated discharge date: 2-[address]: Home vs. rehab
--- NOTE | 2020-04-11 11:35 | CONS ---
CONSULTATION DATE OF THIS DICTATION: 04/11/2020. HISTORY OF PRESENT ILLNESS: Thank you for allowing me to evaluate Nicol Caceres who is a 74-year-old right-handed white female who presented to [facility] on 04/09/2020 for evaluation of confusion which had been present for several days prior to presentation as well as a recent fall. The patient is a poor historian and stated "I don't know," when I asked her why she was in the hospital. The majority of the patient's history was obtained from nursing staff and the medical record. According to the EMS run sheet, the patient had altered level of consciousness for several days according to her family, had been eating high sugar foods despite her history of diabetes mellitus and was recently diagnosed with urinary tract infection and placed on antibiotics. She apparently had a fall on the evening of presentation at home from standing, family was not sure whether she struck her head. The EMS report indicates they noted a left gaze preference on their arrival. The emergency room note indicates the patient complained of suprapubic discomfort, dysuria, and a left periorbital headache. The ER note also mentions the fall and states the patient was maintained on Plavix at home, although this is not listed in the computer as one of her home medications. The patient apparently had an episode of coffee-grounds emesis at home and as a result, blood thinning medications are currently on hold and Gastroenterology is following the patient's case. The patient currently denies headache, vertigo, diplopia, dysarthria, difficulty chewing/swallowing or focal venous systems in the extremities. She denies knowledge of previous stroke or seizure. When I asked her how she was doing, she stated "good." ALLERGIES: No known drug allergies. HOME MEDICATIONS: Norvasc, Zoloft, Lasix, Feosol, Lopressor, vitamin D, Glucotrol, Zocor, Klor- Con, Flomax, Levemir, and reportedly Plavix according to the emergency room note. PAST MEDICAL HISTORY: Hypertension, diabetes mellitus, renal calculi, recurrent UTIs, hyperlipidemia, osteoarthritis, chronic kidney disease, and obesity. PAST SURGICAL HISTORY: Left knee surgery and lithotripsy. SOCIAL HISTORY: Patient denies tobacco or alcohol use. She states she has 4 children. FAMILY HISTORY: Cannot reliably be obtained from the patient. REVIEW OF SYSTEMS: Fourteen systems are reviewed and no additional complaints are identified compared to the review of systems documented in the history and physical. PHYSICAL EXAM: Upon arrival to the patient's room, she was lying in bed and kept her eyes closed through the majority of the evaluation. When asked the patient to open her eyes and make eye contact with me, she demonstrated clear left gaze deviation and would not make direct eye contact with me. When I was standing on her right, although she claims to be able to see me, could not answer if I was wearing a mask or the color of my shirt. Even when I was standing on her left, she would not make direct eye contact with me. She is obese, deconditioned, uncooperative with the examination and frequently told the examiner "that's enough" and wanted me to leave. VITAL SIGNS: Blood pressure is 160/82 with a pulse of 98, respiratory rate 17, temperature is 99.3, weight is 85.9 kg on a 5-foot, 5-inch frame. SKIN AND EXTREMITIES: Arthritic changes are noted in the hands, postsurgical changes are noted at the left knee. HEAD AND NECK: No signs of trauma. Neck is supple. No meningeal signs. Arteries nontender without bruits. HEART: Regular rhythm, higher cortical function. MENTAL STATUS: Patient was alert and would communicate with the examiner, but would not provide her name or answer any other orientation questions. She seemed to perseverate at times answering nearly every question "no" even when this was not an appropriate response such as if I asked her what month or day it was. The only time the patient answered "yes" was 1 after she had children. She would not name or read for the examiner which appeared in part related to poor vision. According to nursing staff, spoke to the patient's daughter, the patient's apparent visual issue is new. She would not repeat. She would not cooperate with right to left orientation or extinction testing. Cranial Nerve 2-12: The right pupil is 4 mm, left is 5 mm each are reactive to light, no afferent pupillary defect. The patient does not consistently blink to threat from either side. III, IV, XI, the patient has clear left gaze deviation. She would not cross the midline to the right. She would perform slight up and down gaze. No ptosis or nystagmus was noted. V: Unreliable but reportedly intact to pinprick and light touch in all 3 divisions. Motor 5 intact. VII: There is flattening of the right nasolabial fold. VIII: Acuity reportedly intact to finger rub, IX,X Palate marilu in the midline. XI: Patient would not shrug her shoulders. XII: Patient protruded her tongue in the midline without fasciculation or atrophy. Motor examination there is a right upper extremity pronator drift. There is reduced bulk in hand intrinsic muscles with normal tone, the patient was spontaneously reaching for her face, appeared to be somewhat ataxic with her right upper extremity movements. She had very little patience for formal muscle strength testing and did not want to do it. Within the constraints of her effort, there appeared to be subtle right upper extremity weakness as compared to the left, the patient did lift each leg off the bed and wiggle the toes in a fairly symmetric fashion. SENSORY: Unreliable but reportedly intact to pinprick/light touch per patient. REFLEXES: Right side of this first biceps 2, 2. Brachioradialis 1,1; triceps 2, 2; patella 2/1 (left is postsurgical), ankle 0,0, Plantar responses extensor on the right and flexor on the left. Casanova's is absent. COORDINATION: With the brief effort, the patient provided on qrfslt-[id number] movements. There appeared to be ataxia on the right. The patient would not perform [id number]-[id number] for the examiner. Rapid alternating movements are mildly slowed on the right. 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 Chest x-ray demonstrated no acute pathology. LAB WORK: Demonstrates a white blood count of 10.8 with hemoglobin 11.4, platelet count 263. Sodium 128, potassium 5.0, BUN 43 with creatinine 1.8, INR 0.9, presenting glucose 497, calcium 8.9, ALT 14, AST 22, sedimentation rate 106. Urinalysis revealed large leukocyte esterase, greater than 182 WBCs, 31 RBCs, many WBC clumps, becerril virus negative. Blood cultures have demonstrated no growth at 24 hours. IMPRESSION: 1. Left gaze preference, right nasal labial fold flattening, right upper extremity drift, and right extensor plantar response, rule out left hemispheric infarct. Risk factors for stroke include hypertension, diabetes mellitus, hyperlipidemia, obesity, previous stroke (by imaging) and age. The patient was reportedly on Plavix at the time of this event. 2. 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 3. Encephalopathy, likely secondary to urinary tract infection, prerenal azotemia, hyponatremia, and uncontrolled diabetes mellitus. 4. Reported coffee-ground emesis at home, Gastroenterology is following the patient's case and blood thinning medication is on hold. 5. Elevated sedimentation rate, likely secondary to urinary tract infection. The patient denies headache at this time. 6. Medical problems including renal calculi, status post lithotripsy, recurrent UTIs, osteoarthritis, and chronic kidney disease. RECOMMENDATION: 1. Case was discussed with the patient and nursing staff. 2. Will pursue MRI of the brain with diffusion-weighted images and carotid ultrasound. 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 3. The patient is currently maintained on Lipitor and will likely reinitiate anti- platelet medications when acceptable from a gastroenterology standpoint. 4. Lab work including ammonia levels/liver function studies. 5. Treatment of urinary tract infection/hydration per primary service. 6. Risk factor modification. 7. Physical and occupational therapy evaluation and treatment. 8. Will follow with you. BRANDEN / ROSIE: [id number] / MTDD
[2020-04-11 11:47] LABS: Glucose,Whole Blood 369 mg/dL (75-99)
--- NOTE | 2020-04-11 12:39 | MR ---
EXAMINATION TYPE: MR brain wo con DATE OF EXAM: 04/11/2020 COMPARISON: CT scan 04/10/2020 HISTORY: Stroke TECHNIQUE: T1-weighted sagittal, T2, FLAIR, and diffusion axial, and T2 coronal coronal views of the brain are submitted. FINDINGS: Exam limited by significant artifact. There is a large area within the left temporal and occipital lobe measuring 8.2 cm compatible with ac ivette ischemia. There is significant mass effect upon the left temporal horn lateral ventricle. There i s extension of the posterior parietal lobe. There is a small additional 3 mm focus of abnormal signal involving the thalamus and deep white matter on the left compatible with remote ischemic change. Area of encephalomalacia and abnormal signal involving the right occipital lobe is compatible with re mote ischemia. There is additional faint abnormal signal involving the cortex of the right parietal o ccipital junction suspicious for additional area of subacute ischemia. Moderate generalized degenerative change seen and there is scattered areas of abnormal signal the whi te matter which are nonspecific but most typical remote ischemic change. Areas of chronic sinusitis a re noted. Craniocervical junction grossly maintained. IMPRESSION: 1. Large area of acute ischemia involving the left occipital, medial temporal and left parietal lobe. There is significant compression and mass effect upon the left temporal horn and lateral ventricle. Report called to the patient's nurse. 2. Large area of remote ischemia involving the right occipital lobe. A peripheral subacute area of co rtical infarct also suspected medially. 3. There is a 3 mm focal area of acute to subacute infarct left thalamus and deep white matter. 4. Degenerative and nonspecific white matter changes most typical remote microvascular ischemia.
[2020-04-11 12:54] LABS: Glucose,Whole Blood 378 mg/dL (75-99)
[2020-04-11 13:37] LABS: Glucose,Whole Blood 359 mg/dL (75-99)
--- NOTE | 2020-04-11 14:23 | CT ---
EXAMINATION TYPE: CODE STROKE: CTA head neck DATE OF EXAM: 04/11/2020 COMPARISON: MRI brain 04/11/2020 INDICATION: Right sided weakness, left eye gaze DLP: 1152.8-brain, CTA-547.2 mGycm, Automated exposure control for dose reduction was used. CONTRAST: None CT of the brain is performed utilizing 3 mm thick sections through the posterior fossa and 3 mm thick sections through the remaining calvarium. Study is performed within 24 hours of arrival to the hosp ital. No abnormal hyperdensity is present to suggest an acute intracranial hemorrhage. No mass lesion is evident. Acute infarct is radiographically apparent within the inferior and medial left occipital lobe. This c orresponds to the diffusion abnormality on the MRI. Old infarct is evident along the medial right occ ipital lobe. There is mild mass effect on the occipital horns of the lateral ventricles. More so on t he left adjacent to the edema. There is effacement of sulci on the left in the occipital region. No m idline shift is evident. Ventricles and sulci are otherwise appropriate for the patient age. Paranasal sinuses and mastoid air cells within the dysgl-wb-elwf are clear. IMPRESSIONS: 1. Acute infarct of the left occipital lobe. 2. Old infarct of the right occipital lobe. EXAMINATION TYPE: CODE STROKE: CTA head neck DATE OF EXAM: 04/11/2020 HISTORY: Right sided weakness, left eye gaze COMPARISON: MRI 04/11/2020 CT DLP: 1152.8-brain, CTA-547.2 mGycm. Automated Exposure Control for Dose Reduction was Utilized. TECHNIQUE: CTA scan of the neck is performed without and with IV Contrast, patient injected with 65 mL of Isovue 370, axial images are obtained, coronal and sagittal reformatted images are reviewed. Th ree-D reconstructed images are created on an independent workstation and reviewed. Source images are reviewed. FINDINGS: Carotid/Vascular Structures: There is a three-vessel arch. The vertebral arteries are codominant. No significant flow-limiting stenosis at the carotid bifurcations is evident. Atheromatous plaquing is p resent at the carotid bifurcations.. Cervical of Eisenberg: The right vertebral artery may terminate in the right posterior inferior cerebell ar artery. On the basilar artery is visualized appears normal. Branching pattern of the basilar arter y appears normal. The posterior cerebral vascular structures appear intact. These extend towards the patient's known infarct without abrupt cut off. Vessels taper into the area of infarct. Right posteri or and left posterior communicating arteries are patent. The arteries bifurcate normally into A1 and M1 segments. A2 segments are normal. The anterior communi cating artery is patent. Middle cerebral artery branches are normal IMPRESSION: 1. No flow-limiting stenosis bilateral carotid bifurcations. 2. Tapering vessels at the level of the acute infarct in the left occipital lobe. Remainder the circl e of Eisenberg appears unremarkable.
[2020-04-11 17:44] LABS: Glucose,Whole Blood 246 mg/dL (75-99)
[2020-04-11 19:15] LABS: Hemoglobin A1C 13.5 % (4.0-6.0)
[2020-04-11] MEDS: ATORVASTATIN 10 MG TAB PO SCH (21:13)
[2020-04-11 21:20] LABS: Glucose,Whole Blood 181 mg/dL (75-99)
[2020-04-11] MEDS: INSULIN DETEMIR (LEVEMIR) 100 UNIT/ML SYR SQ SCH (21:29)
[2020-04-12 05:52] LABS: Calcium 8.6 mg/dL (8.4-10.2); Magnesium 1.4 mg/dL (1.6-2.3); Phosphorus 2.8 mg/dL (2.5-4.5); Potassium 4.1 mmol/L (3.5-5.1)
[2020-04-12 06:00] LABS: Basophils % (A) 0 %; Eosinophils # (A) 0.1 k/uL (0-0.7); Eosinophils % (A) 1 %; HCT 33.5 % (34.0-46.0); HGB 10.3 gm/dL (11.4-16.0); Hypochromasia Slight; Lymphocytes # (A) 1.2 k/uL (1.0-4.8); Lymphocytes % (A) 15 %; MCH 29.6 pg (25.0-35.0); MCHC 30.7 g/dL (31.0-37.0); MCV 96.5 fL (80.0-100.0); Mean Platelet Volume 8.1; Monocytes # (A) 0.5 k/uL (0-1.0); Monocytes % (A) 6 %; Neutrophils # (A) 6.5 k/uL (1.3-7.7); Neutrophils % (A) 77 %; Platelet Count 203 k/uL (150-450); RBC 3.47 m/uL (3.80-5.40); RDW 13.6 % (11.5-15.5); WBC 8.4 k/uL (3.8-10.6)
[2020-04-12 06:54] LABS: Glucose,Whole Blood 360 mg/dL (75-99)
[2020-04-12] MEDS: SODIUM CHLORIDE 0.9% 1,000 ML IV SCH ×2 (07:09→21:05)
[2020-04-12] MEDS: INSULIN ASPART (NovoLOG) 100 UNIT/ML VIAL SQ SCH ×4 (07:10→21:06)
[2020-04-12] MEDS: MAGNESIUM SULFATE-D5W PMX 1 GM in DEXTROSE/WATER 1 100ML.BAG IVPB SCH ×2 (08:06→12:10)
[2020-04-12] MEDS: PANTOPRAZOLE 40 MG/10 ML VIAL IVP SCH ×2 (08:06→21:07)
[2020-04-12] MEDS: SERTRALINE 50 MG TAB PO SCH (08:07)
[2020-04-12] MEDS: amLODIPine 5 MG TAB PO SCH (08:07)
[2020-04-12] MEDS: TAMSULOSIN 0.4 MG CAP.ER.24H PO SCH (08:07)
[2020-04-12] MEDS: CLOPIDOGREL 75 MG TAB PO SCH (08:07)
[2020-04-12] MEDS: FERROUS SULFATE 325 MG TAB PO SCH (08:07)
[2020-04-12] MEDS: METOPROLOL TARTRATE 50 MG TAB PO SCH ×2 (08:07→21:11)
--- NOTE | 2020-04-12 10:14 | PN ---
PROGRESS NOTE DATE OF SERVICE: 04/12/2020 The patient was evaluated in the ICU, she was initially resting, but is easily arousable. Denied headache and denied visual complaints despite the fact that it is clear the patient has difficulty seeing, will not make eye contact and is not tracking. I asked the patient how she feels, she stated "just slow." CURRENT MEDICATIONS: Tylenol, Norvasc, Lipitor, Plavix 75 mg daily, Feosol, NovoLog, Levemir, levofloxacin, magnesium, Lopressor, Narcan p.r.n., Protonix, Zoloft, and Flomax. PHYSICAL EXAM: Upon my arrival to the patient's room in the ICU, she was lying in bed. She appears comfortable, she is obese, deconditioned, and follows commands readily. VITAL SIGNS: Blood pressure is 147/78 with a pulse of 92, respiratory rate is 16, temperature is 98.8. SKIN, EXTREMITIES: Arthritic changes are noted in the hands. Postsurgical changes are noted at the left knee. NEUROLOGIC EXAMINATION: The patient was alert and would communicate but not answer orientation questions. When I asked the patient what time of day is was, she stated, "I guess the morning." She would repeat, but unable to name or read. CRANIAL NERVES 2-12; Demonstrated an anisocoria with right pupil being 4 mm, left being 5 mm, this is unchanged from yesterday. The patient does not consistently blink to threat from either side. She has left gaze deviation. There is flattening of the right nasolabial fold. The patient would not shrug her shoulders and patient protruded her tongue in the midline. Motor examination: There is a right upper extremity pronator drift. There is reduced bulk in hand intrinsic muscles with normal tone. The patient appears to have subtle pyramidal weakness of the right upper extremity of 4+/5. The patient is limited in her cooperation with formal muscle strength testing but the lower extremities were lifted off the bed and she wiggled toes in a symmetric fashion. Plantar responses extensor on the right and flexor on the left. Casanova's is absent. Coordination: There is subtle ataxia with right mifiip-xs-zbaz movement. This is intact on the left. The patient will not perform akjt-[id number]-pxjl movements. DIAGNOSTIC TESTING: Following yesterday's consultation, the patient went for an MRI of the brain which demonstrated an acute left SECURITY SYSTEMS MANAGER infarct and old right SECURITY SYSTEMS MANAGER infarct. After this finding was identified, nursing staff called a "code stroke" overhead and apparently tele neurology was involved who pursued a CTA of the head and neck vessels, which was unrevealing with particular attention to the vertebrobasilar system other than than the expected tapering of vessels around the acute infarct. In particular, the vertebral and basilar arteries were unremarkable. In addition, carotid ultrasound demonstrated no hemodynamically significant stenosis of either internal carotid artery and vertebral arteries demonstrated antegrade flow bilaterally. Nursing staff confirmed with the patient's family that she was not taking any anti-platelet or anticoagulant medication at home, in particular she was not on Plavix and this medication was re- initiated yesterday as she has had no further coffee-grounds emesis. LAB WORK: Demonstrates a white blood count of 8.4 with a hemoglobin of 10.3, platelet count 203. Sodium 133, potassium 4.1, BUN 24, creatinine 1.7, magnesium 1.4. IMPRESSION: 1. Acute left SECURITY SYSTEMS MANAGER infarct, in combination with an old right SECURITY SYSTEMS MANAGER infarct, the patient has cortical blindness. Risk factors for stroke include hypertension, diabetes mellitus, hyperlipidemia, obesity, previous stroke and age. The patient was not on aspirin, Plavix, or other blood thinning medication at the time of this event. CTA of the head/neck vessels was unrevealing; therefore, cardioembolic phenomenon to the posterior circulation should be considered. 2. Denial of visual difficulties despite cortical blindness (Solitario syndrome). 3. Encephalopathy, improved. 4. Reported coffee-grounds emesis at home, Gastroenterology is following the patient's case. 5. Electrolyte derangements including hyponatremia and hypomagnesemia. RECOMMENDATION: 1. Cardiology consultation regarding suspected cardioembolic stroke and the need for echocardiogram with bubble study or transesophageal echocardiogram. The patient is maintained on telemetry. 2. Continue Plavix if acceptable from a medical/gastroenterology perspective and the patient is maintained on Lipitor. 3. Risk factor modification, would recommend weight loss and regular exercise program to tolerance. 4. Avoid hypotension/hyperglycemia. 5. Physical and occupational therapy evaluation and treatment. 6. Followup CT of the brain without contrast in the morning. 7. Will follow with you. Thank you for allowing me to participate in the care of your patient. MMODL / IJN: [id number] / MTDD
[2020-04-12 11:06] VITALS: BMI 31.5
[2020-04-12 11:58] LABS: Glucose,Whole Blood 258 mg/dL (75-99)
--- NOTE | 2020-04-12 13:41 | P.CNPUL ---
History of Present Illness Consult date: 04/12/20 Requesting physician: Josh Belcher Reason for consult: other (CVA, ICU management.) Chief complaint: Altered mental status. History of present illness: This is a 74-year-old female who is an extremely poor historian, patient was brought in to the ER on 04/09/20, she was actually brought in by ambulance when her daughter noted that the patient had altered mental status. Upon arrival to the ER, patient was complaining of some suprapubic abdominal discomfort, and headache pointing to the left eye. Pain was described as sharp and intermittent. Daughter reported that she did have a fall the day prior at 10 PM, and uncertain whether the patient may have injured her head. The patient herself was confused, and she was a very poor historian. Patient was recently treated for a urinary tract infection, and she had no active pulmonary or cardiac symptoms. Considering her presentation, patient had CT of the brain showing old right occipital lobe cortical infarct. Cerebral atrophy, and no ac ivette intracranial abnormality. Looking at the notes from the admitting physician, patient was admitted with the impression of toxic metabolic encephalopathy and she was treated with Levaquin and a neurological consultation was initiated. Her other problems at the time of admission included hyponatr emia type 2 diabetes. On 04/11/20, patient was seen by neurology on consultation, and she was noted to have left gaze preference. And she had multiple risk factors for stroke. Hence he recommended MRI of the brain, and it showed large area of acute ischemia involving the left occipital medial temporal and left parietal lobe. There was also evidence of compression and mass effect upon the left temporal horn and lateral ventricle. There was also large area of remote ischemia involving the right occipital lobe. Hence the patient was admitted to the ICU, and she was seen again by neurology. CT angiogram of the head and neck showed acute infarct in the left occipital lobe confirming the fin dings seen on MRI. There was no flow limiting stenosis in the bilateral carotid bifurcations. There was tapering vessels at the level of the acute infarct in the left occipital lobe , the [place] was unremarkable. Considering the patient was admitted to the ICU, I was asked to see her on consultation. Not much history could be obtained from the patient, all the information was basically obtained from the chart. Review of Systems ROS unobtainable: due to mental status Past Medical History Past Medical History: CVA/TIA, Dementia, Diabetes Mellitus, Hyperlipidemia, Hypertension, Osteoarthritis (OA), Renal Disease Additional Past Medical History / Comment(s): IDDM type II, neuropathy bilateral legs, recent UTI with antibiotic tx, past UTIs, chronic kidney stones, CKD stage III, TIAs with vision affected, vertigo, arthritis multiple joints, delirium, vertigo, vitamin D deficiency, bilateral lower leg edema. History of Any Multi-Drug Resistant Organisms: None Reported Past Surgical History: Orthopedic Surgery Additional Past Surgical History / Comment(s): Lithotripsies/ureteral stenting, R femur fracture with surgery Past Anesthesia/Blood Transfusion Reactions: No Reported Reaction Smoking Status: Former smoker - Past Family History Father Family Medical History: Cancer Additional Family Medical History / Comment(s): Prostate cancer per past medical record. Medications and Allergies Home Medications Medication Instructions Recorded Confirmed Type Ergocalciferol (Vitamin D2) 50,000 unit PO Q7D 03/19/18 04/10/20 History [Vitamin D2] Ferrous Sulfate [Feosol] 325 mg PO DAILY 03/19/18 04/10/20 History Furosemide [Lasix] 20 mg PO DAILY 03/19/18 04/10/20 History Potassium Chloride [Klor-Con 20] 20 meq PO DAILY 03/19/18 04/10/20 History Sertraline [Zoloft] 50 mg PO DAILY 03/19/18 04/10/20 History Simvastatin [Zocor] 10 mg PO HS 03/19/18 04/10/20 History Tamsulosin HCl [Flomax] 0.4 mg PO DAILY 03/19/18 04/10/20 History glipiZIDE [Glucotrol] 10 mg PO AC-BRKFST 03/19/18 04/10/20 History Insulin Detemir [Levemir Flextouch] 15 unit SQ QAM 04/10/20 04/10/20 History Insulin Detemir [Levemir Flextouch] 26 mg SQ HS 04/10/20 04/10/20 History Metoprolol Tartrate [Lopressor] 100 mg PO BID 04/10/20 04/10/20 History amLODIPine [Norvasc] 5 mg PO DAILY 04/10/20 04/10/20 History Allergies Allergy/AdvReac Type Severity Reaction Status Date / Time No Known Allergies Allergy Verified 04/10/20 10:20 Physical Exam Vitals: Vital Signs Temp Pulse Pulse Pulse Resp BP BP 04/12/20 11:50 94 04/12/20 11:00 75 40 H 148/80 04/12/20 10:00 70 20 162/80 04/12/20 09:00 76 29 H 175/110 04/12/20 08:00 98.4 F 81 83 94 22 159/78 04/12/20 07:00 92 16 147/78 04/12/20 06:00 95 20 132/76 04/12/20 05:00 90 22 117/94 04/12/20 04:00 94 16 120/75 04/12/20 03:00 91 21 126/65 04/12/20 02:00 90 18 132/77 04/12/20 01:00 90 16 134/70 04/12/20 00:00 98.8 F 79 83 94 28 H 122/69 04/11/20 23:00 81 27 H 113/62 04/11/20 22:36 99.0 F 83 15 113/62 04/11/20 22:16 81 21 113/62 04/11/20 22:00 80 19 139/67 04/11/20 21:00 89 7 L 142/73 04/11/20 20:00 99 F 80 94 19 148/82 04/11/20 19:00 77 21 140/96 04/11/20 18:00 74 17 139/77 04/11/20 17:00 75 19 126/68 04/11/20 16:00 71 14 126/68 04/11/20 15:30 76 14 108/63 04/11/20 15:00 72 20 135/72 04/11/20 14:30 70 18 135/72 Pulse Ox 04/12/20 11:50 04/12/20 11:00 94 L 04/12/20 10:00 94 L 04/12/20 09:00 95 04/12/20 08:00 96 04/12/20 07:00 04/12/20 06:00 04/12/20 05:00 94 L 04/12/20 04:00 94 L 04/12/20 03:00 95 04/12/20 02:00 94 L 04/12/20 01:00 94 L 04/12/20 00:00 95 04/11/20 23:00 95 04/11/20 22:36 04/11/20 22:16 96 04/11/20 22:00 93 L 04/11/20 21:00 96 04/11/20 20:00 93 L 04/11/20 19:00 04/11/20 18:00 96 04/11/20 17:00 96 04/11/20 16:00 96 04/11/20 15:30 97 04/11/20 15:00 99 04/11/20 14:30 100 Intake and Output 04/11/20 04/12/20 04/12/20 22:59 06:59 14:59 Intake Total 200 Balance 200 Intake: Oral 200 Other: Voiding Method Bedside Commode Bedside Commode Bedside Commode Diaper Diaper Diaper Incontinent Incontinent Incontinent # Voids 1 1 Weight 85.956 kg Physical Exam: Revealed 74-year-old female on room air, resting in bed, in no distress, arousable, follows simple instructions, but she has significant confusion as to place person and time. However the patient is clearly noted to be blind. Head: Atraumatic, normocephalic. EENT: And his cornea, no neck masses, no JVD, dry mucous membranes. Neurologic: Patient is clearly blind. Did not see my hands in front of her eyes. there is evidence of anisocoria right pupil smaller than the right left pupil. There is also a left gaze deviation which is quite obvious. Flattening of the right nasolabial fold is noted. And there is a right upper extremity pronator drift. Chest: [Clear throughout, no crackles, no rhonchi, no wheezes.] Cardiac Exam: [Normal S1 and S2, no S3 gallop, no murmur.] Abdomen: [Soft, nontender, no megaly, no rebound, no guarding, normal bowel so unds.] Extremities: [No clubbing, no edema, no cyanosis. Skin: No rashes.] Results - Laboratory Findings CBC and BMP: 04/12/20 05:12 04/12/20 05:12 PT/INR, D-dimer PT 9.5 sec (9.0-12.0) 04/10/20 00:12 INR 0.9 (<1.2) 04/10/20 00:12 Abnormal lab findings: Abnormal Labs 04/10/20 04/10/20 04/10/20 00:12 00:12 00:12 WBC 10.8 H RBC 3.66 L Hgb Hct MCHC Neutrophils # 8.8 H ESR APTT 18.8 L Sodium 128 L Carbon Dioxide 18 L BUN 43 H Creatinine 1.82 H Glucose 497 H POC Glucose (mg/dL) Hemoglobin A1c Magnesium Alkaline Phosphatase 128 H C-Reactive Protein Albumin Triglycerides Cholesterol LDL Cholesterol, Calc HDL Cholesterol Urine Appearance Urine Protein Urine Glucose (UA) Urine Blood Ur Leukocyte Esterase Urine RBC Urine WBC Urine WBC Clumps Ur Squamous Epith Cells Urine Bacteria Urine Mucus 04/10/20 04/10/20 04/10/20 00:12 00:12 00:29 WBC RBC Hgb Hct MCHC Neutrophils # ESR 106 H APTT Sodium Carbon Dioxide BUN Creatinine Glucose POC Glucose (mg/dL) 502 H Hemoglobin A1c Magnesium Alkaline Phosphatase C-Reactive Protein 32.2 H Albumin Triglycerides Cholesterol LDL Cholesterol, Calc HDL Cholesterol Urine Appearance Urine Protein Urine Glucose (UA) Urine Blood Ur Leukocyte Esterase Urine RBC Urine WBC Urine WBC Clumps Ur Squamous Epith Cells Urine Bacteria Urine Mucus 04/10/20 04/10/20 04/10/20 00:39 01:15 02:40 WBC RBC Hgb Hct MCHC Neutrophils # ESR APTT Sodium Carbon Dioxide BUN Creatinine Glucose POC Glucose (mg/dL) 482 H 397 H Hemoglobin A1c Magnesium Alkaline Phosphatase C-Reactive Protein Albumin Triglycerides Cholesterol LDL Cholesterol, Calc HDL Cholesterol Urine Appearance Turbid H Urine Protein 1+ H Urine Glucose (UA) 4+ H Urine Blood Moderate H Ur Leukocyte Esterase Large H Urine RBC 31 H Urine WBC >182 H Urine WBC Clumps Many H Ur Squamous Epith Cells 5 H Urine Bacteria Occasional H Urine Mucus Rare H 04/10/20 04/10/20 04/10/20 07:11 11:54 16:49 WBC RBC Hgb Hct MCHC Neutrophils # ESR APTT Sodium Carbon Dioxide BUN Creatinine Glucose POC Glucose (mg/dL) 425 H 355 H 187 H Hemoglobin A1c Magnesium Alkaline Phosphatase C-Reactive Protein Albumin Triglycerides Cholesterol LDL Cholesterol, Calc HDL Cholesterol Urine Appearance Urine Protein Urine Glucose (UA) Urine Blood Ur Leukocyte Esterase Urine RBC Urine WBC Urine WBC Clumps Ur Squamous Epith Cells Urine Bacteria Urine Mucus 04/10/20 04/11/20 04/11/20 21:34 07:01 07:11 WBC RBC 3.31 L Hgb 10.5 L Hct 32.0 L MCHC Neutrophils # ESR APTT Sodium Carbon Dioxide BUN Creatinine Glucose POC Glucose (mg/dL) 271 H 220 H Hemoglobin A1c Magnesium Alkaline Phosphatase C-Reactive Protein Albumin Triglycerides Cholesterol LDL Cholesterol, Calc HDL Cholesterol Urine Appearance Urine Protein Urine Glucose (UA) Urine Blood Ur Leukocyte Esterase Urine RBC Urine WBC Urine WBC Clumps Ur Squamous Epith Cells Urine Bacteria Urine Mucus 04/11/20 04/11/20 04/11/20 07:11 07:11 07:11 WBC RBC Hgb Hct MCHC Neutrophils # ESR APTT Sodium 135 L Carbon Dioxide BUN 28 H Creatinine 1.63 H Glucose 194 H POC Glucose (mg/dL) Hemoglobin A1c 13.5 H Magnesium Alkaline Phosphatase C-Reactive Protein Albumin 3.1 L Triglycerides 344 H Cholesterol 216 H LDL Cholesterol, Calc 119 H HDL Cholesterol 28 L Urine Appearance Urine Protein Urine Glucose (UA) Urine Blood Ur Leukocyte Esterase Urine RBC Urine WBC Urine WBC Clumps Ur Squamous Epith Cells Urine Bacteria Urine Mucus 04/11/20 04/11/20 04/11/20 11:45 12:52 13:36 WBC RBC Hgb Hct MCHC Neutrophils # ESR APTT Sodium Carbon Dioxide BUN Creatinine Glucose POC Glucose (mg/dL) 369 H 378 H 359 H Hemoglobin A1c Magnesium Alkaline Phosphatase C-Reactive Protein Albumin Triglycerides Cholesterol LDL Cholesterol, Calc HDL Cholesterol Urine Appearance Urine Protein Urine Glucose (UA) Urine Blood Ur Leukocyte Esterase Urine RBC Urine WBC Urine WBC Clumps Ur Squamous Epith Cells Urine Bacteria Urine Mucus 04/11/20 04/11/20 04/12/20 17:43 21:18 05:12 WBC RBC 3.47 L Hgb 10.3 L Hct 33.5 L MCHC 30.7 L Neutrophils # ESR APTT Sodium Carbon Dioxide BUN Creatinine Glucose POC Glucose (mg/dL) 246 H 181 H Hemoglobin A1c Magnesium Alkaline Phosphatase C-Reactive Protein Albumin Triglycerides Cholesterol LDL Cholesterol, Calc HDL Cholesterol Urine Appearance Urine Protein Urine Glucose (UA) Urine Blood Ur Leukocyte Esterase Urine RBC Urine WBC Urine WBC Clumps Ur Squamous Epith Cells Urine Bacteria Urine Mucus 04/12/20 04/12/20 04/12/20 05:12 06:53 11:56 WBC RBC Hgb Hct MCHC Neutrophils # ESR APTT Sodium 133 L Carbon Dioxide 20 L BUN 24 H Creatinine 1.72 H Glucose 333 H POC Glucose (mg/dL) 360 H 258 H Hemoglobin A1c Magnesium 1.4 L Alkaline Phosphatase C-Reactive Protein Albumin Triglycerides Cholesterol LDL Cholesterol, Calc HDL Cholesterol Urine Appearance Urine Protein Urine Glucose (UA) Urine Blood Ur Leukocyte Esterase Urine RBC Urine WBC Urine WBC Clumps Ur Squamous Epith Cells Urine Bacteria Urine Mucus - Diagnostic Findings Additional studies: MRI of the brain and CT angiogram of the head and neck were reviewed and as noted in HPI. 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 Acute encephalopathy, possibly toxic metabolic in nature, but I believe this is mostly related to her acute CVA. History of type 2 diabetes. History of recent urinary tract infection. History of hypertension. History of degenerative joint disease. Dyslipidemia. History of previous CVA Chronic kidney disease stage III. Chronic iron deficiency anemia Recommendation: Continue present supportive care measures. Cardiology to evaluate the patient for possible cardioembolic stroke May need echocardiogram with bubble study. And ONDINA. Continue present meds including Plavix and Lipitor. Will definitely need long-term rehabilitation. We'll continue to follow in the ICU, patient is hemodynamically stable, and she has no active pulmonary symptoms at present. Time with Patient: Greater than 30
--- NOTE | 2020-04-12 15:29 | CONS ---
CONSULTATION Mrs. Caceres is a 74-year-old female who is admitted through the emergency room on April 10 with change in mental status. Cardiology consultation was requested for possible cardiac source for cerebrovascular accident. I am not able to obtain an accurate history from the patient according to the notes into the nursing staff. She is awake, but confused. She came in with possible urinary tract infection. She had an episode of GI bleeding. The patient had an episode of coffee-grounds emesis at home. When I ask her how she is feeling she is quite weak, cannot recall events. I do not have any other prior history. Patient had no recent admission to the hospital. MEDICATION: At home include amlodipine 5 mg daily, Lasix 20 mg daily, iron, Lopressor 100 mg twice a day, Glucotrol 10 mg daily, simvastatin 10 mg daily, potassium, Flomax, and insulin. REVIEW OF SYSTEMS: Review of systems is quite limited. No accurate history could be obtained. PHYSICAL EXAMINATION: She is a 74-year-old female, alert, confused. Blood pressure running in the 120s to 160s with a heart rate in the 70s. HEAD: Normocephalic. EYES: Sclerae nonicteric. NECK: Good upstroke, no bruit. LUNGS: Clear to auscultation. HEART: Regular rate and rhythm, S1, S2. No S3 with systolic murmur, no diastolic murmur, no rub. ABDOMEN: Soft, nontender, positive bowel sounds, no organomegaly. EXTREMITIES: No significant edema. LAB DATA: Revealed BUN and creatinine 24 and 1.72. Hemoglobin of 10.3. Her magnesium is 1.4. Her EKG revealed a sinus mechanism, normal axis and intervals, evidence of inferior myocardial infarction with left ventricle hypertrophy. Her carotid duplex scan shows no significant obstructive disease. CT angiogram of her carotid revealed acute infarct of the left occipital area as well as the graft of the right occipital area, but no evidence of bilateral stenosis at the carotid bifurcation. Brain MRI revealed a large area of acute ischemia involving the left occipital, medial temporal and left parietal lobe and large remote ischemia involving the right occipital area. IMPRESSION: 1. Cerebrovascular accident with multiple areas. 2. Hypertension. 3. Coffee-grounds emesis on presentation. 4. Renal failure of unknown duration. 5. Hyperlipidemia. 6. Diabetes mellitus. RECOMMENDATION: From the cardiac standpoint, will follow her blood pressure and depending on the trend further adjustment will be done. I will avoid episode of hypotension at this point. I will adjust the dose of her Lipitor. I will obtain an echocardiogram with Doppler to rule out any PFO. Patient had no evidence of atrial fibrillation. Depending on results of testing, further recommendation will be made. Thank you for this consult. Will follow with you. BRANDEN / IJN: [id number] /
--- NOTE | 2020-04-12 15:37 | P.PN ---
Subjective Progress Note Date: 04/12/20 Principal diagnosis: Change in mental status Patient was able to tell her nurse her name and date of earlier today but she is not able to answer questions for me. In general she is not making any sense and her speech has been garbled. However she is able to follow commands. No overnight issues. Objective - Vital Signs Vital signs: Vital Signs Temp 99.1 F 04/12/20 12:00 Pulse 77 04/12/20 14:00 Resp 30 H 04/12/20 14:00 BP 142/71 04/12/20 14:00 Pulse Ox 95 04/12/20 14:00 Intake & Output 04/11/20 04/12/20 04/12/20 18:59 06:59 18:59 Intake Total 200 Balance 200 Weight 85.956 kg Intake: Oral 200 Other: Voiding Method Bedside Commode Bedside Commode Bedside Commode Diaper Diaper Diaper Incontinent Incontinent Incontinent # Voids 1 1 - Exam Constitutional: No acute distress Eyes:Anicteric sclerae, moist conjunctiva, no lid-lag, PERRLA, ENMT: Oropharynx clear, no erythema, exudates Neck: Supple, FROM, no masses, or JVD, No carotid bruits, No thyromegaly Lungs: Clear to auscultation, Clear to percussion, Normal respiratory effort, no accessory muscle use Cardiovascular: Heart regular in rate and rhythm, No murmurs, gallops, or rubs, No peripheral edema Abdominal: Soft, Nontender, no guarding, rebound or rigidity, Normoactive bowel sounds, No hepatomegaly, No splenomegaly, No palpable mass Skin: Normal temperature, tone, texture, turgor, no induration, No subcutaneous nodules, No rash, lesions, No ulcers Extremities: No digital cyanosis, No clubbing, Pedal pulses intact and symmetric al, Radial pulses intact and symmetrical, No calf tenderness Neuro: Able to lift extremities off the bed but not able to resist against gravity. Lethargic, garbled speech. Flattening of the right nasolabial fold. Left gaze deviation. - Labs CBC & Chem 7: 04/12/20 05:12 04/12/20 05:12 Labs: Abnormal Lab Results - Last 24 Hours (Table) 04/11/20 04/11/20 04/11/20 Range/Units 07:11 17:43 21:18 RBC (3.80-5.40) m/uL Hgb (11.4-16.0) gm/dL Hct (34.0-46.0) % MCHC (31.0-37.0) g/dL Sodium (137-145) mmol/L Carbon Dioxide (22-30) mmol/L BUN (7-17) mg/dL Creatinine (0.52-1.04) mg/dL Glucose (74-99) mg/dL POC Glucose (mg/dL) 246 H 181 H (75-99) mg/dL Hemoglobin A1c 13.5 H (4.0-6.0) % Magnesium (1.6-2.3) mg/dL 04/12/20 04/12/20 04/12/20 Range/Units 05:12 05:12 06:53 RBC 3.47 L (3.80-5.40) m/uL Hgb 10.3 L (11.4-16.0) gm/dL Hct 33.5 L (34.0-46.0) % MCHC 30.7 L (31.0-37.0) g/dL Sodium 133 L (137-145) mmol/L Carbon Dioxide 20 L (22-30) mmol/L BUN 24 H (7-17) mg/dL Creatinine 1.72 H (0.52-1.04) mg/dL Glucose 333 H (74-99) mg/dL POC Glucose (mg/dL) 360 H (75-99) mg/dL Hemoglobin A1c (4.0-6.0) % Magnesium 1.4 L (1.6-2.3) mg/dL 04/12/20 Range/Units 11:56 RBC (3.80-5.40) m/uL Hgb (11.4-16.0) gm/dL Hct (34.0-46.0) % MCHC (31.0-37.0) g/dL Sodium (137-145) mmol/L Carbon Dioxide (22-30) mmol/L BUN (7-17) mg/dL Creatinine (0.52-1.04) mg/dL Glucose (74-99) mg/dL POC Glucose (mg/dL) 258 H (75-99) mg/dL Hemoglobin A1c (4.0-6.0) % Magnesium (1.6-2.3) mg/dL Microbiology - Last 24 Hours (Table) 04/10/20 00:12 Blood Culture - Preliminary Blood No Growth after 48 hours 04/10/20 01:15 Urine Culture - Final Urine,Voided Assessment and Plan Plan: UTI -Urine cx negative, d/c levofloxacin -Continue with IV fluids 80 mL an hour 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 left ELIGIBILITY SERVICES REPRESENTATIVE stroke, with old right ELIGIBILITY SERVICES REPRESENTATIVE stroke -MRI report noted, will repeat head CT in am -Has cortical blindness, -Continue plavix, new med started by neuro -Atorvastatin 80mg daily -Continue neurochecks -Cardiology consult for echo with bubble study as well as possible ONDINA to r/o cardioembolic source of CVA -Neuro following -Tele -PT and OT -Follow swallow eval Questionable coffee ground emesis at home Hgb stable seen by GI , no scopes indicated ALEJANDRINA on chronic kidney disease, likely secondary to dehydration -Continue with IV fluids and monitor BMP Hyponatremia -C/w IVFs and monitor BMP Hypomagnesemia Replace Type 2 diabetes mellitus with hyperglycemia -Continue with insulin sliding scale with Levemir qhs -Blood glucose monitoring DVT prophylaxis -IPCDs CODE STATUS: Full Code Discussed with: Patient Anticipated discharge date: 2-[address]: Will likely require rehab
[2020-04-12 17:21] LABS: Glucose,Whole Blood 327 mg/dL (75-99)
[2020-04-12 20:39] LABS: Glucose,Whole Blood 141 mg/dL (75-99)
[2020-04-12] MEDS ORDERED: ATORVASTATIN 40 MG TAB PO SCH (21:00)
[2020-04-12] MEDS: INSULIN DETEMIR (LEVEMIR) 100 UNIT/ML SYR SQ SCH (21:06)
[2020-04-13 05:34] LABS: Calcium 8.9 mg/dL (8.4-10.2); Potassium 4.2 mmol/L (3.5-5.1)
[2020-04-13 06:33] LABS: Glucose,Whole Blood 227 mg/dL (75-99)
[2020-04-13] MEDS: SODIUM CHLORIDE 0.9% 1,000 ML IV SCH ×2 (06:33→12:21)
[2020-04-13] MEDS: INSULIN ASPART (NovoLOG) 100 UNIT/ML VIAL SQ SCH ×4 (06:37→21:19)
--- NOTE | 2020-04-13 08:00 | ECHOF ---
Referral Reason:cva MEASUREMENTS -------- HEIGHT: 165.1 cm WEIGHT: 85.7 kg BP: 162/80 RVIDd: 3.4 cm (< 3.3) IVSd: 1.3 cm (0.6 - 1.1) LVIDd: 4.8 cm (3.9 - 5.3) LVPWd: 1.3 cm (0.6 - 1.1) IVSs: 1.6 cm LVIDs: 3.0 cm LVPWs: 1.6 cm LA Diam: 3.6 cm (2.7 - 3.8) LAESV Index (A-L): 33.80 ml/m Ao Diam: 3.2 cm (2.0 - 3.7) MV EXCURSION: 13.341 mm (> 18.000) MV EF SLOPE: 53 mm/s (70 - 150) EPSS: 1.7 cm MV E Jacques: 1.07 m/s MV DecT: 348 ms MV A Jacques: 1.43 m/s MV E/A Ratio: 0.75 AV maxP.62 mmHg AV meanP.04 mmHg RAP: 5.00 mmHg RVSP: 26.20 mmHg FINDINGS -------- This was a technically adequate study. The left ventricular size is normal. There is mild concentric left ventricular hypertrophy. Overa ll left ventricular systolic function is normal with, an EF between 60 - 65 %. The right ventricle is mildly enlarged. LA is midly dilated 29-33ml/m2. The right atrium is normal in size. Contrast study was performed with 2 iv injections of 8 ccs of agitated normal saline, at rest, and wi th cough. No PFO noted There is mild to moderate aortic valve sclerosis. There is mild aortic stenosis present. Peak/hyun n gradient across the Aortic Valve is 25.62mmHg / 16.04mmHg. The mitral valve leaflets are mildly thickened. Moderate mitral annular calcification present. Th ere is trace to mild mitral regurgitation. Mild tricuspid regurgitation present. Right ventricular systolic pressure is normal at < 35 mmHg. There is no pulmonic regurgitation present. The aortic root size is normal. IVC Not well visulized. There is no pericardial effusion. CONCLUSIONS -------- 1. This was a technically adequate study. 2. The left ventricular size is normal. 3. There is mild concentric left ventricular hypertrophy. 4. Overall left ventricular systolic function is normal with, an EF between 60 - 65 %. 5. The right ventricle is mildly enlarged. 6. LA is midly dilated 29-33ml/m2. 7. The right atrium is normal in size. 8. Contrast study was performed with 2 iv injections of 8 ccs of agitated normal saline, at rest, and with cough. 9. No PFO noted 10. There is mild to moderate aortic valve sclerosis. 11. There is mild aortic stenosis present. 12. Peak/mean gradient across the Aortic Valve is 25.62mmHg / 16.04mmHg. 13. The mitral valve leaflets are mildly thickened. 14. Moderate mitral annular calcification present. 15. There is trace to mild mitral regurgitation. 16. Mild tricuspid regurgitation present. 17. Right ventricular systolic pressure is normal at < 35 mmHg. 18. There is no pulmonic regurgitation present. 19. The aortic root size is normal. 20. IVC Not well visulized. 21. There is no pericardial effusion. MARKETING OPERATIONS COORDINATOR: Albina Betts RDCS
[2020-04-13] MEDS: amLODIPine 5 MG TAB PO SCH (08:28)
[2020-04-13] MEDS: TAMSULOSIN 0.4 MG CAP.ER.24H PO SCH (08:28)
[2020-04-13] MEDS: FERROUS SULFATE 325 MG TAB PO SCH (08:28)
[2020-04-13] MEDS: METOPROLOL TARTRATE 50 MG TAB PO SCH ×2 (08:28→21:19)
[2020-04-13] MEDS: SERTRALINE 50 MG TAB PO SCH (08:28)
[2020-04-13] MEDS: CLOPIDOGREL 75 MG TAB PO SCH (08:28)
[2020-04-13] MEDS: PANTOPRAZOLE 40 MG/10 ML VIAL IVP SCH (08:28)
[2020-04-13] MEDS: ATORVASTATIN 80 MG TAB PO SCH (08:28)
--- NOTE | 2020-04-13 08:41 | CT ---
EXAMINATION TYPE: CT brain wo con DATE OF EXAM: 04/13/2020 COMPARISON: 04/10/2020 HISTORY: Neuro deficit, stroke follow-up CT DLP: 1202.4 mGycm Automated exposure control for dose reduction was used. FINDINGS: Dental artifact noted. Intracranial atherosclerotic changes. There is a large area of abnormal attenu ation with compression of the left temporal horn and atrium of the left lateral ventricle. Infarct ar ea measures at least 9 cm suggestive of a subacute area of ischemia. Remote infarct involving the rig ht occipital lobe. There is no evidence of hemorrhage. Calvarium intact. Hyperostosis of frontal bone noted. Degenerative and nonspecific white matter olvera es seen. Suspect a subacute small infarct left thalamus. IMPRESSION: 1. Findings compatible with acute to subacute large infarct involving the left occipital lobe with ex tension into the temporal lobe and parietal lobe. Additional small subcentimeter focus of subacute is chemia in the left thalamus suspected. There is significant compression of the temporal horn and atri um of the left lateral ventricle. 2. Remote infarct right occipital.
--- NOTE | 2020-04-13 09:56 | PN ---
PROGRESS NOTE Mrs. Caceres is a 74-year-old female who presented with a change in mental status and had evidence consistent with posterior circulation cerebrovascular accident. She is awake, but confused. Hemodynamically, she is stable. She is in sinus mechanism. She has no evidence of atrial fibrillation. She had no evidence of hypotension. Her MRI showed a large area of acute ischemia involving the left occipital, medial temporal and the left parietal lobe and there is remote ischemia involving the right occipital lobe as well. She has no evidence of significant carotid obstructive disease. MEDICATION: At this time include amlodipine 5 mg daily, Lipitor 80 mg daily, Plavix 75 mg daily, metoprolol tartrate 100 mg twice a day, sertraline. PHYSICAL EXAMINATION: Blood pressure running in the 140s with the heart rate in the 60s. LUNGS: Clear. HEART: Regular rate and rhythm, S1, S2. No S3 with systolic murmur heard at the base, no diastolic murmur, no rub. ABDOMEN: Soft, nontender. EXTREMITIES: No edema. LAB DATA: Revealed BUN and creatinine 22 and 1.49, improved compared with yesterday. Potassium 4.2. IMPRESSION: 1. Cerebrovascular accident in the posterior circulation. 2. Confusion. 3. Renal failure, improving. 4. Hyperlipidemia. 5. Diabetes mellitus. 6. Coffee-ground emesis on presentation, stable. RECOMMENDATION: I will review the results for echocardiogram and depending on that, further recommendation will be made. I will follow her renal function and depending her progress, further recommendation will be made. At this time, there is no evidence to suggest atrial fibrillation. MMODL / IJN: [id number] /
--- NOTE | 2020-04-13 11:38 | PN ---
PROGRESS NOTE DATE OF THIS DICTATION: 04/13/2020. REFERRING PHYSICIAN: Dr. Belcher. The patient was evaluated in the ICU, she just returned from having a CT scan of the brain which demonstrated stable findings compared to the previous MRI with an acute left SECURITY MONITOR infarct. The patient does complain of a left-sided headache. The patient continues to deny visual loss and denies vertigo, dysarthria, difficulty chewing/swallowing or focal venous systems in the extremities. CURRENT MEDICATIONS: Tylenol, Norvasc, Lipitor, Plavix 75 mg daily, Feosol, NovoLog, Levemir, Lopressor, Protonix, Zoloft, and Flomax. PHYSICAL EXAM: Upon my arrival to the patient's room in the ICU, she was lying in bed, appears comfortable. She is obese, deconditioned. She is readily responsive to verbal stimulation and will follow commands. She has poor dentition. VITAL SIGNS: Blood pressure is 142/68 with a pulse of 62, respiratory rate 19, temperature 98.6. SKIN AND EXTREMITIES: Arthritic changes are noted in the hands, postsurgical changes are noted in the left knee. NEUROLOGIC EXAMINATION: The patient was alert. She was able to state her name. She stated the year was "77" and did not know where she was. When I asked her to name my watch by having her palpate it, she spent extensive time touching the watch, but then returned a response of "77" perseverating the year she had just said. She was able to repeat, but could not read secondary to visual loss. CRANIAL NERVES 2 THROUGH 12: Continues to demonstrate an anisocoria. She has left gaze preference and subtle flattening of the right nasolabial fold. MOTOR EXAMINATION: There is no pronator drift at this time, the patient appears to have some difficulty moving the proximal left upper extremity, which may be related to local shoulder pathology. There was reduced bulk in hand intrinsic muscles with normal tone and no involuntary movements are noted. Full muscle strength testing is limited, although the patient appears to have subtle pyramidal weakness of the right upper extremity, 4+ or 5 and moves the lower extremities in a symmetric fashion by lifting the legs off the bed and wiggling the toes. Plantar responses extensor on the right and flexor on the left. Casanova's is absent. Coordination, there is no significant ataxia with [id number] movements on either side. Rapid alternating movements are symmetric with finger tapping. DIAGNOSTIC TESTING: Patient had an echocardiogram with bubble study, which demonstrated an ejection fraction of 60% to 65% with mildly dilated left atrium and no shunt. Follow-up CT completed this morning demonstrated stable acute left SECURITY MONITOR infarct. LAB WORK: Demonstrates a sodium 134, potassium 4.2, BUN 22, with creatinine 1.49. HEMOGLOBIN A1C 13.5. TSH within normal limits. Cholesterol 216 with an LDL 119, HDL 28, triglycerides 344. IMPRESSION: 1. Acute left SECURITY MONITOR infarct in combination with an old right SECURITY MONITOR infarct, the patient has cortical blindness. Risk factors for stroke include hypertension, diabetes mellitus, hyperlipidemia, obesity, previous stroke and age. The patient was not on aspirin or other anti-platelet/anticoagulant medication at the time of this event. CTA of the head/neck vessels was unrevealing; therefore, cardioembolic phenomenon to the posterior circulation should be considered. 2. Denial of visual difficulties despite cortical blindness (Solitario syndrome). 3. Encephalopathy, improved. 4. Uncontrolled diabetes mellitus with hemoglobin A1c of 13.5. 5. Reported coffee-ground emesis at home without recurrence, Gastroenterology has evaluated the patient. RECOMMENDATIONS: 1. Cardiology is following the patient's case and making recommendations, echocardiogram demonstrated an ejection fraction of 60% to 65% with mildly dilated left atrium, but no shunt. The patient is also maintained on telemetry. 2. Continue Plavix if acceptable from a medical/gastroenterology perspective and the patient is maintained on Lipitor. If she manifests atrial fibrillation, she should be transitioned to anticoagulation if GI status is stable, if she manifests no arrhythmias during this hospitalization due to concern of possible cardioembolic phenomenon, would recommend an event monitor upon discharge. 3. Risk factor modification including weight loss, regular exercise program and improve glycemic control. 4. Avoid hypotension/hyperglycemia. 5. Physical and occupational therapy evaluation and treatment. 6. Today is my last day on the Neurology service, please refer to the schedule for neuro neurologic coverage. Thank you for allowing me to participate in the care of your patient. Critical care time spent in evaluation 35 minutes. MMCARSON / ROSIE: [id number] /
[2020-04-13 12:02] LABS: Glucose,Whole Blood 210 mg/dL (75-99)
--- NOTE | 2020-04-13 12:35 | P.PN ---
Subjective Progress Note Date: 04/13/20 Principal diagnosis: Acute CVA This is a 74-year-old female who is an extremely poor historian, patient was brought in to the ER on 04/09/20, she was actually brought in by ambulance when her daughter noted that the patient had altered mental status. Upon arrival to the ER, patient was complaining of some suprapubic abdominal discomfort, and headache pointing to the left eye. Pain was described as sharp and intermittent. Daughter reported that she did have a fall the day prior at 10 PM, and uncertain whether the patient may have injured her head. The patient herself was confused, and she was a very poor historian. Patient was recently treated for a urinary tract infection, and she had no active pulmonary or cardiac symptoms. Considering her presentation, patient had CT of the brain showing old right occipital lobe cortical infarct. Cerebral atrophy, and no acute intracranial abnormality. Looking at the notes from the admitting physician, patient was admitted with the impression of toxic metabolic encephalopathy and she was treated with Levaquin and a neurological consultation was initiated. Her other problems at the time of admission included hyponatremi a type 2 diabetes. On 04/11/20, patient was seen by neurology on consultation, and she was noted to have left gaze preference. And she had multiple risk factors for stroke. Hence he recommended MRI of the brain, and it showed large area of acute ischemia involving the left occipital medial temporal and left parietal lobe. There was also evidence of compression and mass effect upon the left temporal horn and lateral ventricle. There was also large area of remote ischemia involving the right occipital lobe. Hence the patient was admitted to the ICU, and she was seen again by neurology. CT angiogram of the head and neck showed acute infarct in the left occipital lobe confirming the findings seen on MRI. There was no flow limiting stenosis in the bilateral carotid bifurcations. There was tapering vessels at the level of the acute infarct in the left occipital lobe , the [place] was unremarkable. Considering the patient was admitted to the ICU, I was asked to see her on consultation. Not much history could be obtained from the patient, all the information was basically obtained from the chart. Patient was reevaluated today on 04/13/20, remains in the ICU, repeat CT of the brain demonstrated stable findings compared to previous MRI. Patient is complaining of left-sided headache. She is basically blind but continues to deny visual loss. Labs are basically unremarkable, her renal functioning is improving creatinine is down to 1.49 today, a left lites are normal. Hemoglobin is 10.3 WBC count is 8.4. Patient underwent transesophageal echocardiogram, and it was basically nondiagnostic. She also had a bubble study. Objective - Vital Signs Vital signs: Vital Signs Temp 98.6 F 04/13/20 12:00 Pulse 94 04/13/20 12:00 Resp 14 04/13/20 12:00 BP 146/73 04/13/20 12:00 Pulse Ox 93 L 04/13/20 12:00 Intake & Output 04/12/20 04/13/20 04/13/20 18:59 06:59 18:59 Weight 85.956 kg Other: Voiding Method Bedside Commode Bedside Commode Bedside Commode Diaper Diaper Diaper Incontinent Incontinent Incontinent # Voids 1 - Exam Physical Exam: Revealed 74-year-old female on room air, resting in bed, in no distress, arousable, follows simple instructions, but she has significant confusion as to place person and time. However the patient is clearly noted to be blind. Head: Atraumatic, normocephalic. EENT: And his cornea, no neck masses, no JVD, dry mucous membranes. Neurologic: Patient is clearly blind. Did not see my hands in front of her eyes. there is evidence of anisocoria right pupil smaller than the right left pupil. There is also a left gaze deviation which is quite obvious. Flattening of the right nasolabial fold is noted. And there is a right upper extremity pronator drift. Chest: [Clear throughout, no crackles, no rhonchi, no wheezes.] Cardiac Exam: [Normal S1 and S2, no S3 gallop, no murmur.] Abdomen: [Soft, nontender, no megaly, no rebound, no guarding, normal bowel sounds.] Extremities: [No clubbing, no edema, no cyanosis. Skin: No rashes.] - Labs CBC & Chem 7: 04/12/20 05:12 04/13/20 04:59 Labs: Abnormal Lab Results - Last 24 Hours (Table) 04/12/20 04/12/20 04/13/20 Range/Units 17:19 20:38 04:59 Sodium 134 L (137-145) mmol/L Carbon Dioxide 19 L (22-30) mmol/L BUN 22 H (7-17) mg/dL Creatinine 1.49 H (0.52-1.04) mg/dL Glucose 186 H (74-99) mg/dL POC Glucose (mg/dL) 327 H 141 H (75-99) mg/dL 04/13/20 04/13/20 Range/Units 06:32 12:01 Sodium (137-145) mmol/L Carbon Dioxide (22-30) mmol/L BUN (7-17) mg/dL Creatinine (0.52-1.04) mg/dL Glucose (74-99) mg/dL POC Glucose (mg/dL) 227 H 210 H (75-99) mg/dL Microbiology - Last 24 Hours (Table) 04/10/20 00:12 Blood Culture - Preliminary Blood No Growth after 72 hours Assessment and Plan Assessment: Impression: Acute left MATE RELIEF infarct, with cortical blindness History of type 2 diabetes. History of recent urinary tract infection. History of hypertension. History of degenerative joint disease. Dyslipidemia. History of previous CVA Chronic kidney disease stage III. Chronic iron deficiency anemia Recommendation: Continue present supportive care measures. Echocardiogram report was reviewed. Repeat CT of the brain was reviewed. Continue present meds including Plavix and Lipitor. Continue to monitor sugars and treat accordingly. Will definitely need long-term rehabilitation. Could transfer patient out of the ICU to a regular medical floor. Time with Patient: Less than 30
--- NOTE | 2020-04-13 13:05 | P.PN ---
Subjective Progress Note Date: 04/13/20 This is a 74-year-old female with past medical history noted below who presented to the emergency room with headache, confusion, and vision problems. Patient was evaluated in the ER and admitted to the hospital for further management of her medical problems noted below. 1. 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 Patient had extensive workup including CT of the head and neck, brain MRI, carotid Doppler, and echocardiogram of the heart. Report reviewed by neurology. Continue Plavix and Lipitor. PT/OT/speech pathology. 2. Type 2 diabetes: Not well controlled. A1c 13.5. Started on Levemir 15 units at bedtime. Continue sliding scale insulin. 3. Hyperlipidemia, on Lipitor 4. UTI, culture negative to date. Antibiotic discontinued yesterday. 5. Acute toxo metabolic encephalopathy, improving 6. Acute kidney injury: Creatinine trending down with IV fluids. Discontinue IV fluids and encourage oral hydration. 7. Physical debility: Seen by PT/OT. Plan for placement to ECF for subacute rehab. Objective - Vital Signs Vital signs: Vital Signs Temp 98.6 F 04/13/20 12:00 Pulse 94 04/13/20 12:00 Resp 14 04/13/20 12:00 BP 146/73 04/13/20 12:00 Pulse Ox 93 L 04/13/20 12:00 Intake & Output 04/12/20 04/13/20 04/13/20 18:59 06:59 18:59 Weight 85.956 kg Other: Voiding Method Bedside Commode Bedside Commode Bedside Commode Diaper Diaper Diaper Incontinent Incontinent Incontinent # Voids 1 - Labs CBC & Chem 7: 04/12/20 05:12 04/13/20 04:59 Labs: Abnormal Lab Results - Last 24 Hours (Table) 04/12/20 04/12/20 04/13/20 Range/Units 17:19 20:38 04:59 Sodium 134 L (137-145) mmol/L Carbon Dioxide 19 L (22-30) mmol/L BUN 22 H (7-17) mg/dL Creatinine 1.49 H (0.52-1.04) mg/dL Glucose 186 H (74-99) mg/dL POC Glucose (mg/dL) 327 H 141 H (75-99) mg/dL 04/13/20 04/13/20 Range/Units 06:32 12:01 Sodium (137-145) mmol/L Carbon Dioxide (22-30) mmol/L BUN (7-17) mg/dL Creatinine (0.52-1.04) mg/dL Glucose (74-99) mg/dL POC Glucose (mg/dL) 227 H 210 H (75-99) mg/dL Microbiology - Last 24 Hours (Table) 04/10/20 00:12 Blood Culture - Preliminary Blood No Growth after 72 hours
[2020-04-13 17:08] LABS: Glucose,Whole Blood 228 mg/dL (75-99)
[2020-04-13 20:38] LABS: Glucose,Whole Blood 269 mg/dL (75-99)
[2020-04-13] MEDS: ACETAMINOPHEN TAB 325 MG TAB PO PRN (21:19)
[2020-04-13] MEDS: INSULIN DETEMIR (LEVEMIR) 100 UNIT/ML SYR SQ SCH (21:19)
[2020-04-14 05:43] LABS: HCT 32.8 % (34.0-46.0); HGB 10.8 gm/dL (11.4-16.0); Hypochromasia Slight; MCH 31.6 pg (25.0-35.0); MCHC 33.1 g/dL (31.0-37.0); MCV 95.7 fL (80.0-100.0); Mean Platelet Volume 7.8; Platelet Count 260 k/uL (150-450); RBC 3.42 m/uL (3.80-5.40); RDW 13.1 % (11.5-15.5); WBC 9.3 k/uL (3.8-10.6)
[2020-04-14 06:17] LABS: Calcium 8.8 mg/dL (8.4-10.2)
[2020-04-14 08:27] LABS: Glucose,Whole Blood 174 mg/dL (75-99)
[2020-04-14] MEDS: INSULIN DETEMIR (LEVEMIR) 100 UNIT/ML SYR SQ SCH ×2 (09:09→21:34)
[2020-04-14] MEDS: INSULIN ASPART (NovoLOG) 100 UNIT/ML VIAL SQ SCH ×4 (09:09→21:34)
[2020-04-14] MEDS: amLODIPine 5 MG TAB PO SCH (09:09)
[2020-04-14] MEDS: METOPROLOL TARTRATE 50 MG TAB PO SCH ×2 (09:09→21:35)
[2020-04-14] MEDS: ATORVASTATIN 80 MG TAB PO SCH (09:09)
[2020-04-14] MEDS: FERROUS SULFATE 325 MG TAB PO SCH (09:09)
[2020-04-14] MEDS: TAMSULOSIN 0.4 MG CAP.ER.24H PO SCH (09:09)
[2020-04-14] MEDS: CLOPIDOGREL 75 MG TAB PO SCH (09:09)
[2020-04-14] MEDS: SERTRALINE 50 MG TAB PO SCH (09:10)
--- NOTE | 2020-04-14 11:00 | PN ---
PROGRESS NOTE Mrs. Caceres is a 74-year-old female who presented with symptoms of confusion and evidence of cerebrovascular accident. She is stable at this point. Hemodynamically stable. She still has episode of confusion. She is in sinus mechanism. She underwent an echocardiogram with contrast that revealed no evidence of shunting. She has no evidence of arrhythmia or hypotension. She continues to be on Plavix 75 mg daily, Lipitor 80 mg daily, amlodipine 5 mg daily, metoprolol tartrate 100 mg twice a day, sertraline, and Flomax. PHYSICAL EXAMINATION: Blood pressure 135/70 with a heart rate in 70s. LUNGS: Clear. HEART: Regular rate and rhythm, S1, S2. No S3 with systolic murmur. No diastolic murmur. ABDOMEN: Soft nontender. EXTREMITIES: No edema. LAB DATA: BUN and creatinine 25 and 1.47. Potassium 4.0, hemoglobin of 10.8. IMPRESSION: 1. Cerebrovascular accident with acute left posterior cerebral artery infarct with cortical blindness. 2. Hypertension. 3. Diabetes. 4. Hyperlipidemia. 5. Chronic kidney disease. RECOMMENDATION: From the cardiac standpoint she is stable. There is no evidence of intracardiac origin for her event. I do not recommend any further cardiac workup. Her systolic function was normal. We will see her on an as-needed basis. Please feel free to call us for any questions. MMODL / IJN: [id number] /
--- NOTE | 2020-04-14 11:21 | P.PN ---
Subjective Progress Note Date: 04/14/20 Principal diagnosis: Acute CVA This is a 74-year-old female who is an extremely poor historian, patient was brought in to the ER on 04/09/20, she was actually brought in by ambulance when her daughter noted that the patient had altered mental status. Upon arrival to the ER, patient was complaining of some suprapubic abdominal discomfort, and headache pointing to the left eye. Pain was described as sharp and intermittent. Daughter reported that she did have a fall the day prior at 10 PM, and uncertain whether the patient may have injured her head. The patient herself was confused, and she was a very poor historian. Patient was recently treated for a urinary tract infection, and she had no active pulmonary or cardiac symptoms. Considering her presentation, patient had CT of the brain showing old right occipital lobe cortical infarct. Cerebral atrophy, and no acute intracranial abnormality. Looking at the notes from the admitting physician, patient was admitted with the impression of toxic metabolic encephalopathy and she was treated with Levaquin and a neurological consultation was initiated. Her other problems at the time of admission included hyponatremi a type 2 diabetes. On 04/11/20, patient was seen by neurology on consultation, and she was noted to have left gaze preference. And she had multiple risk factors for stroke. Hence he recommended MRI of the brain, and it showed large area of acute ischemia involving the left occipital medial temporal and left parietal lobe. There was also evidence of compression and mass effect upon the left temporal horn and lateral ventricle. There was also large area of remote ischemia involving the right occipital lobe. Hence the patient was admitted to the ICU, and she was seen again by neurology. CT angiogram of the head and neck showed acute infarct in the left occipital lobe confirming the findings seen on MRI. There was no flow limiting stenosis in the bilateral carotid bifurcations. There was tapering vessels at the level of the acute infarct in the left occipital lobe , the [place] of [place] was unremarkable. Considering the patient was admitted to the ICU, I was asked to see her on consultation. Not much history could be obtained from the patient, all the information was basically obtained from the chart. Patient was reevaluated today on 04/13/20, remains in the ICU, repeat CT of the brain demonstrated stable findings compared to previous MRI. Patient is complaining of left-sided headache. She is basically blind but continues to deny visual loss. Labs are basically unremarkable, her renal functioning is improving creatinine is down to 1.49 today, a left lites are normal. Hemoglobin is 10.3 WBC count is 8.4. Patient underwent transesophageal echocardiogram, and it was basically nondiagnostic. She also had a bubble study. Patient was reevaluated today on 04/14/20, patient is basically about the same. Remains in the ICU, confused, and blind. No major filter changer the last 24 hours. Labs were reviewed and noted to be relatively unremarkable, creatinine is 1.47. Improving since admission. Objective - Vital Signs Vital signs: Vital Signs Temp 98.3 F 04/14/20 08:00 Pulse 71 04/14/20 08:00 Resp 20 04/14/20 08:00 BP 135/78 04/14/20 08:00 Pulse Ox 94 L 04/14/20 08:00 Intake & Output 04/13/20 04/14/20 04/14/20 18:59 06:59 18:59 Other: Voiding Method Bedside Commode Bedside Commode Bedside Commode Diaper Diaper Diaper Incontinent Incontinent Incontinent - Exam Physical Exam: Revealed 74-year-old female on room air, resting in bed, in no distress, Head: Atraumatic, normocephalic. EENT: PERRLA,, no neck masses, no JVD, dry mucous membranes. Neurologic: Patient is clearly blind. There is also a left gaze deviation which is quite obvious. Chest: [Clear throughout, no crackles, no rhonchi, no wheezes.] Cardiac Exam: [Normal S1 and S2, no S3 gallop, no murmur.] Abdomen: [Soft, nontender, no megaly, no rebound, no guarding, normal bowel sounds.] Extremities: [No clubbing, no edema, no cyanosis. Skin: No rashes.] - Labs CBC & Chem 7: 04/14/20 05:17 04/14/20 05:17 Labs: Abnormal Lab Results - Last 24 Hours (Table) 04/13/20 04/13/20 04/13/20 Range/Units 12:01 17:07 20:37 RBC (3.80-5.40) m/uL Hgb (11.4-16.0) gm/dL Hct (34.0-46.0) % Sodium (137-145) mmol/L Chloride (98-107) mmol/L Carbon Dioxide (22-30) mmol/L BUN (7-17) mg/dL Creatinine (0.52-1.04) mg/dL Glucose (74-99) mg/dL POC Glucose (mg/dL) 210 H 228 H 269 H (75-99) mg/dL 04/14/20 04/14/20 04/14/20 Range/Units 05:17 05:17 08:25 RBC 3.42 L (3.80-5.40) m/uL Hgb 10.8 L (11.4-16.0) gm/dL Hct 32.8 L (34.0-46.0) % Sodium 136 L (137-145) mmol/L Chloride 108 H (98-107) mmol/L Carbon Dioxide 20 L (22-30) mmol/L BUN 25 H (7-17) mg/dL Creatinine 1.47 H (0.52-1.04) mg/dL Glucose 115 H (74-99) mg/dL POC Glucose (mg/dL) 174 H (75-99) mg/dL Microbiology - Last 24 Hours (Table) 04/10/20 00:12 Blood Culture - Preliminary Blood No Growth after 96 hours Assessment and Plan Assessment: Impression: 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 History of recent urinary tract infection. History of hypertension. History of degenerative joint disease. Dyslipidemia. History of previous CVA Chronic kidney disease stage III. Chronic iron deficiency anemia Recommendation: Continue present supportive care measures. Patient will be transferred out of the ICU to a regular medical floor, Will definitely need referral to ECF, and long-term rehab and physical therapy. Long-term prognosis is extremely poor and guarded. Time with Patient: Less than 30
[2020-04-14 12:01] LABS: Glucose,Whole Blood 237 mg/dL (75-99)
--- NOTE | 2020-04-14 12:47 | P.PN ---
Subjective Progress Note Date: 04/14/20 Patient is resting comfortably. No acute events overnight reported by nursing staff. Objective - Vital Signs Vital signs: Vital Signs Temp 98.3 F 04/14/20 08:00 Pulse 71 04/14/20 08:00 Resp 20 04/14/20 08:00 BP 135/78 04/14/20 08:00 Pulse Ox 94 L 04/14/20 08:00 Intake & Output 04/13/20 04/14/20 04/14/20 18:59 06:59 18:59 Other: Voiding Method Bedside Commode Bedside Commode Bedside Commode Diaper Diaper Diaper Incontinent Incontinent Incontinent - Exam General: The patient is awake and alert, in no distress Eye: there is normal conjunctiva bilaterally. Neck: The neck is supple, there is no JVD. Cardiovascular: Normal S1-S2, no S3-S4, no murmurs. Respiratory: Lungs clear to auscultation bilaterally Gastrointestinal: Abdomen is soft, nontender Musculoskeletal: There is no pedal edema. Neurological:. Speech is normal. Skin: Skin is warm and dry - Labs CBC & Chem 7: 04/14/20 05:17 04/14/20 05:17 Labs: Abnormal Lab Results - Last 24 Hours (Table) 04/13/20 04/13/20 04/14/20 Range/Units 17:07 20:37 05:17 RBC (3.80-5.40) m/uL Hgb (11.4-16.0) gm/dL Hct (34.0-46.0) % Sodium 136 L (137-145) mmol/L Chloride 108 H (98-107) mmol/L Carbon Dioxide 20 L (22-30) mmol/L BUN 25 H (7-17) mg/dL Creatinine 1.47 H (0.52-1.04) mg/dL Glucose 115 H (74-99) mg/dL POC Glucose (mg/dL) 228 H 269 H (75-99) mg/dL 04/14/20 04/14/20 04/14/20 Range/Units 05:17 08:25 11:59 RBC 3.42 L (3.80-5.40) m/uL Hgb 10.8 L (11.4-16.0) gm/dL Hct 32.8 L (34.0-46.0) % Sodium (137-145) mmol/L Chloride (98-107) mmol/L Carbon Dioxide (22-30) mmol/L BUN (7-17) mg/dL Creatinine (0.52-1.04) mg/dL Glucose (74-99) mg/dL POC Glucose (mg/dL) 174 H 237 H (75-99) mg/dL Microbiology - Last 24 Hours (Table) 04/10/20 00:12 Blood Culture - Preliminary Blood No Growth after 96 hours Assessment and Plan Assessment: This is a 74-year-old female with past medical history noted below who presented to the emergency room with headache, confusion, and vision problems. Patient was evaluated in the ER and admitted to the hospital for further management of her medical problems noted below. 1. 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 Patient had extensive workup including CT of the head and neck, brain MRI, carotid Doppler, and echocardiogram of the heart. Report reviewed by neurology. Continue Plavix and Lipitor. PT/OT/speech pathology. 2. Type 2 diabetes: Not well controlled. A1c 13.5. Blood glucose not well controlled. I would increase Levemir dose to 10 units twice daily. Continue sliding scale insulin. 3. Hyperlipidemia, on Lipitor 4. UTI, culture negative to date. Antibiotic discontinued yesterday. 5. Acute toxo metabolic encephalopathy, improving 6. Acute kidney injury: Creatinine trending down with IV fluids. Discontinue IV fluids and encourage oral hydration. 7. Physical debility: Seen by PT/OT. Plan for placement to ECF for subacute rehab. Awaiting placement to ECF
[2020-04-14] MEDS: ACETAMINOPHEN TAB 325 MG TAB PO PRN (13:26)
[2020-04-14] MEDS: MAGNESIUM OXIDE 400 MG TAB PO SCH (13:26)
[2020-04-14 16:49] LABS: Glucose,Whole Blood 271 mg/dL (75-99)
[2020-04-14 20:21] LABS: Glucose,Whole Blood 305 mg/dL (75-99)
[2020-04-15 05:17] LABS: Potassium 3.9 mmol/L (3.5-5.1)
[2020-04-15 05:18] LABS: Calcium 8.8 mg/dL (8.4-10.2); Magnesium 1.6 mg/dL (1.6-2.3)
[2020-04-15 05:34] LABS: Basophils % (A) 1 %; Eosinophils # (A) 0.2 k/uL (0-0.7); Eosinophils % (A) 2 %; HCT 32.4 % (34.0-46.0); HGB 10.6 gm/dL (11.4-16.0); Lymphocytes % (A) 24 %; MCH 31.1 pg (25.0-35.0); MCHC 32.5 g/dL (31.0-37.0); MCV 95.7 fL (80.0-100.0); Mean Platelet Volume 7.9; Monocytes # (A) 0.4 k/uL (0-1.0); Monocytes % (A) 5 %; Neutrophils # (A) 5.8 k/uL (1.3-7.7); Neutrophils % (A) 67 %; Platelet Count 272 k/uL (150-450); RBC 3.39 m/uL (3.80-5.40); RDW 13.1 % (11.5-15.5); WBC 8.7 k/uL (3.8-10.6)
[2020-04-15 06:36] LABS: Glucose,Whole Blood 172 mg/dL (75-99)
[2020-04-15] MEDS: INSULIN DETEMIR (LEVEMIR) 100 UNIT/ML SYR SQ SCH ×3 (07:00→23:06)
[2020-04-15] MEDS: SERTRALINE 50 MG TAB PO SCH (09:26)
[2020-04-15] MEDS: MAGNESIUM OXIDE 400 MG TAB PO SCH (09:27)
[2020-04-15] MEDS: ATORVASTATIN 80 MG TAB PO SCH (09:27)
[2020-04-15] MEDS: TAMSULOSIN 0.4 MG CAP.ER.24H PO SCH (09:27)
[2020-04-15] MEDS: FERROUS SULFATE 325 MG TAB PO SCH (09:27)
[2020-04-15] MEDS: CLOPIDOGREL 75 MG TAB PO SCH (09:27)
[2020-04-15] MEDS: METOPROLOL TARTRATE 50 MG TAB PO SCH ×2 (09:27→23:06)
[2020-04-15] MEDS: amLODIPine 5 MG TAB PO SCH (09:27)
[2020-04-15] MEDS: INSULIN ASPART (NovoLOG) 100 UNIT/ML VIAL SQ SCH ×5 (09:29→23:05)
[2020-04-15 11:40] LABS: Glucose,Whole Blood 315 mg/dL (75-99)
--- NOTE | 2020-04-15 13:23 | P.PN ---
Subjective Patient is resting comfortably. She is awake and alert. No acute events overnight reported by nursing staff. Objective - Vital Signs Vital signs: Vital Signs Temp 97.9 F 04/15/20 12:00 Pulse 66 04/15/20 12:00 Resp 20 04/15/20 12:00 BP 101/59 04/15/20 12:00 Pulse Ox 97 04/15/20 12:00 Intake & Output 04/14/20 04/15/20 04/15/20 18:59 06:59 18:59 Intake Total 150 Balance 150 Weight 82.3 kg Intake: Oral 150 Other: Voiding Method Bedside Commode Bedside Commode Bedside Commode Diaper Diaper Diaper Incontinent Incontinent Incontinent # Voids 3 2 - Exam General: The patient is awake and alert, in no distress Eye: there is normal conjunctiva bilaterally. Neck: The neck is supple, there is no JVD. Cardiovascular: Normal S1-S2, no S3-S4, no murmurs. Respiratory: Lungs clear to auscultation bilaterally Gastrointestinal: Abdomen is soft, nontender Musculoskeletal: There is no pedal edema. Neurological:. Speech is normal. Skin: Skin is warm and dry - Labs CBC & Chem 7: 04/15/20 04:53 04/15/20 04:53 Labs: Abnormal Lab Results - Last 24 Hours (Table) 04/14/20 04/14/20 04/15/20 Range/Units 16:48 20:20 04:53 RBC 3.39 L (3.80-5.40) m/uL Hgb 10.6 L (11.4-16.0) gm/dL Hct 32.4 L (34.0-46.0) % Sodium (137-145) mmol/L Carbon Dioxide (22-30) mmol/L BUN (7-17) mg/dL Creatinine (0.52-1.04) mg/dL Glucose (74-99) mg/dL POC Glucose (mg/dL) 271 H 305 H (75-99) mg/dL 04/15/20 04/15/20 04/15/20 Range/Units 04:53 06:35 11:39 RBC (3.80-5.40) m/uL Hgb (11.4-16.0) gm/dL Hct (34.0-46.0) % Sodium 133 L (137-145) mmol/L Carbon Dioxide 18 L (22-30) mmol/L BUN 28 H (7-17) mg/dL Creatinine 1.42 H (0.52-1.04) mg/dL Glucose 167 H (74-99) mg/dL POC Glucose (mg/dL) 172 H 315 H (75-99) mg/dL Microbiology - Last 24 Hours (Table) 04/10/20 00:12 Blood Culture - Preliminary Blood No Growth after 120 hours Assessment and Plan Assessment: This is a 74-year-old female with past medical history noted below who presented to the emergency room with headache, confusion, and vision problems. Patient was evaluated in the ER and admitted to the hospital for further management of her medical problems noted below. 1. 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 Patient had extensive workup including CT of the head and neck, brain MRI, carotid Doppler, and echocardiogram of the heart. Report reviewed by neurology. Continue Plavix and Lipitor. PT/OT/speech pathology. 2. Type 2 diabetes: Not well controlled. A1c 13.5. Blood glucose not well controlled. I would increase Levemir dose to 12 units twice daily and add Yarelis Log 3 units before each meal. Continue sliding scale insulin. 3. Hyperlipidemia, on Lipitor 4. UTI, culture negative to date. Antibiotic discontinued yesterday. 5. Acute toxo metabolic encephalopathy, improving 6. Acute kidney injury: Creatinine trending down with IV fluids. Discontinue I V fluids and encourage oral hydration. 7. Physical debility: Seen by PT/OT. Plan for placement to ECF for subacute rehab. Awaiting placement to ECF
[2020-04-15 16:54] LABS: Glucose,Whole Blood 263 mg/dL (75-99)
[2020-04-15 22:12] LABS: Glucose,Whole Blood 145 mg/dL (75-99)
[2020-04-16 04:36] LABS: Basophils % (A) 1 %; Eosinophils # (A) 0.2 k/uL (0-0.7); Eosinophils % (A) 2 %; HCT 34.9 % (34.0-46.0); HGB 11.2 gm/dL (11.4-16.0); Hypochromasia Moderate; Lymphocytes % (A) 23 %; MCH 31.1 pg (25.0-35.0); MCV 97.4 fL (80.0-100.0); Mean Platelet Volume 7.8; Monocytes # (A) 0.5 k/uL (0-1.0); Monocytes % (A) 6 %; Neutrophils # (A) 5.6 k/uL (1.3-7.7); Neutrophils % (A) 66 %; Platelet Count 270 k/uL (150-450); RBC 3.58 m/uL (3.80-5.40); RDW 13.1 % (11.5-15.5); WBC 8.4 k/uL (3.8-10.6)
[2020-04-16 04:49] LABS: Potassium 4.2 mmol/L (3.5-5.1)
[2020-04-16 04:50] LABS: Calcium 9.1 mg/dL (8.4-10.2)
[2020-04-16 04:53] VITALS: PULSE 67
[2020-04-16 06:52] LABS: Glucose,Whole Blood 155 mg/dL (75-99)
[2020-04-16] MEDS: INSULIN ASPART (NovoLOG) 100 UNIT/ML VIAL SQ SCH ×4 (06:53→11:52)
[2020-04-16] MEDS: INSULIN DETEMIR (LEVEMIR) 100 UNIT/ML SYR SQ SCH (06:59)
[2020-04-16] MEDS: METOPROLOL TARTRATE 50 MG TAB PO SCH (09:05)
[2020-04-16] MEDS: ATORVASTATIN 80 MG TAB PO SCH (09:05)
[2020-04-16] MEDS: FERROUS SULFATE 325 MG TAB PO SCH (09:05)
[2020-04-16] MEDS: SERTRALINE 50 MG TAB PO SCH (09:05)
[2020-04-16] MEDS: MAGNESIUM OXIDE 400 MG TAB PO SCH (09:07)
[2020-04-16] MEDS: CLOPIDOGREL 75 MG TAB PO SCH (09:07)
[2020-04-16] MEDS: TAMSULOSIN 0.4 MG CAP.ER.24H PO SCH (09:07)
[2020-04-16] MEDS: amLODIPine 5 MG TAB PO SCH (09:07)
[2020-04-16 11:24] VITALS: BP 98/56; RESP 16; TEMP 98.2
[2020-04-16 11:49] LABS: Glucose,Whole Blood 206 mg/dL (75-99)
[2020-04-16] MEDS: ACETAMINOPHEN TAB 325 MG TAB PO PRN (11:51)
--- NOTE | 2020-04-16 13:57 | P.DS ---
Providers Date of admission: 04/10/20 03:13 Expected date of discharge: 04/16/20 Attending physician: Josh Belcher MD Consults: 04/10/20 05:22 Consult Physician Urgent Consulting Provider: Maximus Mora Consult Reason/Comments: AMS, Impaired vision Do you want consulting provider notified?: Yes 04/10/20 05:34 Consult Physician Urgent Consulting Provider: Ban Moreno Consult Reason/Comments: hematemesis Do you want consulting provider notified?: Yes 04/11/20 16:21 Consult Physician Urgent Consulting Provider: Gil Alves Consult Reason/Comments: ICU mgmt Do you want consulting provider notified?: Already Contacted 04/12/20 09:16 Consult Physician Routine Consulting Provider: Ivan Tan Consult Reason/Comments: suspected cardioembolic stroke and need for echo with bubble study or ONDINA Do you want consulting provider notified?: Yes Primary care physician: Stated None Hospital Course: This is a 74-year-old female with past medical history noted below who presented to the emergency room with headache, confusion, and vision problems. Patient was evaluated in the ER and admitted to the hospital for further management of her medical problems noted below. 1. 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 Patient had extensive workup including CT of the head and neck, brain MRI, carotid Doppler, and echocardiogram of the heart. Report reviewed by neurology. Continue Plavix and Lipitor. PT/OT/speech pathology. 2. Type 2 diabetes: Not well controlled. A1c 13.5. Blood glucose not well controlled. Levemir dose to 12 units twice daily and add NovoLog 3 units before each meal. Continue sliding scale insulin. 3. Hyperlipidemia, on Lipitor 4. UTI, culture negative to date. Antibiotic discontinued. 5. Acute toxo metabolic encephalopathy, improving 6. Acute kidney injury: Creatinine trending down with IV fluids. Discontinue IV fluids and encourage oral hydration. 7. Physical debility: Seen by PT/OT. Plan for placement to ECF for subacute rehab. 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 Glucosamine not well controlled Patient will be discharged to [facility] in a stable condition. For further details about this hospitalization please refer to the electronic chart. Patient Condition at Discharge: Serious Plan - Discharge Summary Discharge Rx Participant: No New Discharge Prescriptions: New Insulin Detemir (Levemir) [Levemir] 12 unit SQ BID@0700,2100 syr Atorvastatin [Lipitor] 80 mg PO DAILY #30 tab Magnesium Oxide [Mag-Ox] 400 mg PO DAILY #30 tab INSULIN ASPART (NovoLOG) [NovoLOG (formulary)] 3 unit SQ AC-TID vial Clopidogrel [Plavix] 75 mg PO DAILY #30 tab Continue Sertraline [Zoloft] 50 mg PO DAILY Potassium Chloride [Klor-Con 20] 20 meq PO DAILY Ferrous Sulfate [Iron (65 MG Elemental)] 325 mg PO DAILY glipiZIDE [Glucotrol] 10 mg PO AC-BRKFST Furosemide [Lasix] 20 mg PO DAILY Ergocalciferol (Vitamin D2) [Vitamin D2] 50,000 unit PO Q7D Metoprolol Tartrate [Lopressor] 100 mg PO BID Discontinued Simvastatin [Zocor] 10 mg PO HS Tamsulosin HCl [Flomax] 0.4 mg PO DAILY amLODIPine [Norvasc] 5 mg PO DAILY Insulin Detemir [Levemir Flextouch] 26 mg SQ HS Insulin Detemir [Levemir Flextouch] 15 unit SQ QAM Discharge Medication List Ergocalciferol (Vitamin D2) [Vitamin D2] 50,000 unit PO Q7D 03/19/18 [History] Ferrous Sulfate [Iron (65 MG Elemental)] 325 mg PO DAILY 03/19/18 [History] Furosemide [Lasix] 20 mg PO DAILY 03/19/18 [History] Potassium Chloride [Klor-Con 20] 20 meq PO DAILY 03/19/18 [History] Sertraline [Zoloft] 50 mg PO DAILY 03/19/18 [History] glipiZIDE [Glucotrol] 10 mg PO AC-BRKFST 03/19/18 [History] Metoprolol Tartrate [Lopressor] 100 mg PO BID 04/10/20 [History] Atorvastatin [Lipitor] 80 mg PO DAILY #30 tab 04/16/20 [Rx] Clopidogrel [Plavix] 75 mg PO DAILY #30 tab 04/16/20 [Rx] INSULIN ASPART (NovoLOG) [NovoLOG (formulary)] 3 unit SQ AC-TID vial 04/16/20 [Rx] Insulin Detemir (Levemir) [Levemir] 12 unit SQ BID@0700,2100 syr 04/16/20 [Rx] Magnesium Oxide [Mag-Ox] 400 mg PO DAILY #30 tab 04/16/20 [Rx] Follow up Appointment(s)/Referral(s): Marvin Damon MD [REFERRING] - 1-2 Days Discharge Disposition: TRANSFER TO SNF/ECF
== END 2020-04-16 15:36 | DRG 64 ==
LOC: EC 23:20 → 4SSUR 04-10 03:13 → 2SICU 04-11 13:22
PROVIDERS: ADMIT Internal Medicine; ATTEND Internal Medicine
DX: I63.532 Cerebral infarction due to unspecified occlusion or stenosis of left posterior cerebral artery (principal); G92 Toxic encephalopathy; K92.0 Hematemesis; E87.1 Hypo-osmolality and hyponatremia; N17.9 Acute kidney failure, unspecified; N39.0 Urinary tract infection, site not specified; E78.5 Hyperlipidemia, unspecified; E11.22 Type 2 diabetes mellitus with diabetic chronic kidney disease; R40.2363 Coma scale, best motor response, obeys commands, at hospital admission; R40.2143 Coma scale, eyes open, spontaneous, at hospital admission; R40.2233 Coma scale, best verbal response, inappropriate words, at hospital admission; E83.42 Hypomagnesemia; M19.90 Unspecified osteoarthritis, unspecified site; N18.3 Chronic kidney disease, stage 3 (moderate); F32.9 Major depressive disorder, single episode, unspecified; F17.200 Nicotine dependence, unspecified, uncomplicated; E86.0 Dehydration; E11.65 Type 2 diabetes mellitus with hyperglycemia; H54.7 Unspecified visual loss; D50.9 Iron deficiency anemia, unspecified; I12.9 Hypertensive chronic kidney disease with stage 1 through stage 4 chronic kidney disease, or unspecified chronic kidney disease; F03.90 Unspecified dementia, unspecified severity, without behavioral disturbance, psychotic disturbance, mood disturbance, and anxiety; E11.41 Type 2 diabetes mellitus with diabetic mononeuropathy; N20.0 Calculus of kidney; H47.619 Cortical blindness, unspecified side of brain; W19.XXXA Unspecified fall, initial encounter; Z11.59 Encounter for screening for other viral diseases; Z79.4 Long term (current) use of insulin; Z79.02 Long term (current) use of antithrombotics/antiplatelets; Z79.899 Other long term (current) drug therapy; Z86.73 Personal history of transient ischemic attack (TIA), and cerebral infarction without residual deficits; Z87.440 Personal history of urinary (tract) infections; Z87.442 Personal history of urinary calculi
CPT/HCPCS: 36415; 70450; 70496; 70498; 70551; 71046; 80048; 80053; 80061; 81001; 82009; 82140; 82271; 83036; 83605; 83735; 84100; 84443; 85025; 85027; 85610; 85652; 85730; 86140; 87040; 87086; 93005; 93306; 93880; 96365; 99285